=== PATIENT | male | born 1940 | race Caucasian/White ===

== ENCOUNTER 2018-09-14 19:23 | Inpatient (IN) ==
[2018-09-14] MEDS ORDERED: Labetalol HCl Inj 100 MG/20 ML Vial IV.PUSH ONE (19:37)
[2018-09-14] MEDS ORDERED: Labetalol HCl Inj 20 MG/4 ML Vial IV.PUSH ONE (19:45)
[2018-09-14 19:49] LABS: Baso # (Auto) 0.1 th/mm3 (0.0-0.2); Baso % (Auto) 0.7 % (0.0-2.0); Eos # (Auto) 0.9 th/mm3 (0.0-0.4); Eos % (Auto) 7.7 % (0.0-4.0); Hematocrit 35.7 % (39.0-51.0); Lymph # (Auto) 4.8 th/mm3 (1.0-4.8); Mean Corpuscular HGB Conc 33.7 % (32.0-36.0); Mean Platelet Volume 7.3 fL (7.0-11.0); Mono # (Auto) 0.9 th/mm3 (0.0-0.9); Neut # (Auto) 4.4 th/mm3 (1.8-7.7); Neut % (Auto) 39.6 % (16.0-70.0); Platelet Count 279 th/mm3 (150-450); Red Blood Count 3.75 mil/mm3 (4.50-5.90); Red Cell Distribution Width 13.2 % (11.6-17.2); White Blood Count 11.1 th/mm3 (4.0-11.0)
[2018-09-14 19:56] LABS: Chloride 102 meq/L (98-107); Potassium 3.8 meq/L (3.5-5.1); Sodium 135 meq/L (136-145)
[2018-09-14 19:59] LABS: Anion Gap 10 meq/L (5-15); Blood Urea Nitrogen 16 mg/dL (7-18); Calcium 8.7 mg/dL (8.5-10.1); Carbon Dioxide 23.4 meq/L (21.0-32.0); Glucose,Random 110 mg/dL (74-106)
[2018-09-14 20:02] LABS: Activated Partial Thrombo Time 25.1 sec (23.4-31.7); Prothrombin Time 10.5 sec (9.8-11.6)
[2018-09-14 20:03] LABS: Glomerular Filtration Rate 73 mL/min (>89)
[2018-09-14 20:06] LABS: Creatine Kinase 105 U/L (39-308)
[2018-09-14] MEDS ORDERED: ALTEPLASE DRIP IV.SIG ONE ×2 (20:09→21:00)
[2018-09-14] MEDS ORDERED: Alteplase Bolus 9 MG/9 ML Syringe IV.PUSH ONE (20:09)
[2018-09-14] MEDS ORDERED: niCARdipine Inj 25 MG in Sodium Chlor 0.9% Inj 240 ML IV.CONT PRN (20:09)
--- NOTE | 2018-09-14 20:21 | ED ---
HPI General Chief complaint: Stroke Alert Stated complaint: STROKE ALERT Time Seen by Provider: 09/14/18 19:44 Source: EMS Mode of arrival: EMS Limitations: altered mental status History of Present Illness HPI narrative: 78-year-old male with history of hypertension, hyperlipidemia, diabetes, brought in by EMS from home as a stroke alert. According to paramedics, they were called at 6:45 PM in regards to the patient having expressive aphasia and left-sided weakness. Symptoms started at around 6:30 PM and were first noticed by the patient's . On arrival the patient is awake, looks around the room, follows some commands, is non-conversive, is a poor historian. When asked any question, the patient's response is "yes." On exam the patient has right upper and right lower extremity weakness, with inability to hold these extremities against gravity. He has normal strength in his left upper and left lower extremity. There is no facial asymmetry. Stroke alert was initiated in the field and continued by me here in the emergency department. Shortly after my assessment the patient was promptly taken to CT scan. 7:31 PM: The patient's is at the bedside. At this time the patient is at CT. She tells me that the patient is very active and went out for a bicycle ride this evening. When he returned home, shortly afterwards when they were having a conversation she tells me that what he was saying did not make any sense. He then attempted to feed himself and was unable to do so, missing his mouth while attempting to eat salad. The symptoms started at around 6:30 PM according to the patient's . The risks and benefits of TPA were discussed with the patient's and she has provided verbal consent to this medication. As soon as the patient's blood pressure was controlled with Cardene, and CT report showed no intracranial hemorrhage, the patient was administered TPA. The patient's is at the bedside and was made aware of all findings. I also spoke with the patient's [id number] via telephone who is a critical care nurse in [place] and made her aware of the clinical situation. Related Data Allergies Allergy/AdvReac Type Severity Reaction Status Date / Time No Known Allergies Allergy Verified 09/14/18 20:39 Review of Systems ROS Unobtainable ROS Unobtainable: unobtainable due to mental condition PMFSH Social History Social History Recent Travel in [facility] within the Last 8 Weeks: No Recent Out of Country Travel within the Last 8 Weeks: No Exam Narrative Exam Narrative: GENERAL: Well-developed, well-nourished, awake, looks around room, no apparent distress. SKIN: Focused skin assessment warm/dry. HEAD: Atraumatic. Normocephalic. EYES: Pupils equal, round, 3 mm, reactive to light. No scleral icterus. No injection or drainage. ENT: No nasal bleeding or discharge. Mucous membranes pink and moist. NECK: Trachea midline. No JVD. CARDIOVASCULAR: Regular rate and rhythm. RESPIRATORY: No accessory muscle use. Clear to auscultation. Breath sounds equal bilaterally. GASTROINTESTINAL: Abdomen soft, non-tender, nondistended. MUSCULOSKELETAL: No obvious deformities. No clubbing. No cyanosis. No edema. NEUROLOGICAL: Awake and alert. Does not answer questions appropriately, usually responding with "yes." Right arm and right leg weakness, with inability to hold his extremities against gravity. Normal strength in left upper and left lower extremity. Does not follow all commands. PSYCHIATRIC: Unable to assess. Course Initial Documented Vital Signs Pulse Oximetry 99 09/14/18 19:23 Last Documented Vital Signs Temperature 97.4 F L 09/14/18 19:24 Pulse Rate 56 L 09/14/18 19:24 Respiratory Rate 18 09/14/18 19:24 Blood Pressure 198/87 H 09/14/18 19:24 Pulse Oximetry 100 09/14/18 19:24 Critical Care Time Critical Care Time: Yes Total Critical Care Time: 40 Attestation: Aggregate critical care time was 40 minutes. Time to perform other separately billable procedures was not included in the critical care time. My time did not include minutes spent treating any other patients simultaneously or on activities that did not directly contribute to the patient's treatment. The services I provided to this patient were to treat and/or prevent clinically significant deterioration that could result in: , permanent disability, worsening clinical condition, acute respiratory failure I provided critical care services requiring my management, as noted below: Chart data review, documentation time, medication orders and management, vital sign assessments/reviewing monitor data, ordering and reviewing lab tests, ordering and interpreting/reviewing x-rays and diagnostic studies, care of the patient and discussion of the patient with the admitting physicians. Quality Measure Queries Stroke Last date observed well: 09/14/18 Last time observed well: 20:19 Comment Thrombolytic Delay: Patient was unable to lay flat for CT scan vomiting several times. He required 3 doses of antiemetics before he was able to lay flat without vomiting. Medical Decision Making MDM Narrative Medical decision making narrative: 7:30 PM: After assessing the patient I discussed the case with on-call neurologist Dr. Merrill. States the patient is a TPA candidate based on his symptoms and presentation to the emergency department approximately 45 minutes after onset. 7:31 PM: More history was obtained from the patient's who arrived shortly after the patient. See HPI. Verbal consent to administer TPA was obtained from her should the CT head be absent for hemorrhage. 7:35 PM: I was called to CT as the patient has had multiple episodes of vomiting while laying flat. Patient was provided Zofran without any improvement. He was then given 10 mg of IV Reglan without any improvement. He was notably hypertensive and was given 10 mg of IV labetalol with improvement in his blood pressure to 154/92, however his heart rate slowed from the mid 60s to the low 50s. Again, CT head was attempted, however the patient vomited. He was given 25 mg of IM Phenergan, and at approximately 8:05 PM the patient was able to lay flat for CT head. CT head was reviewed by neurologist Dr. Merrill and there is not appear to be an intracranial hemorrhage. Patient's blood pressure again increased, and he was started on a Cardene drip for better BP control prior to initiation of TPA. Case discussed with sous chef Dr. Munoz who will admit the patient to the ICU at our main hospital in [facility]. Medical Screen Exam Complete: Yes Emergency Medical Condition: Yes Differential Diagnosis Differential Diagnosis: Acute CVA, intracranial abnormality, intracranial mass, metabolic encephalopathy Lab Data Result diagrams: 09/14/18 19:35 09/14/18 19:35 Lab Results 09/14/18 09/14/18 09/14/18 Range/Units 19:35 19:35 19:35 CBC w Diff Auto diff final WBC 11.1 H (4.0-11.0) th/mm3 RBC 3.75 L (4.50-5.90) mil/mm3 Hgb 12.0 L (13.0-17.0) gm/dL Hct 35.7 L (39.0-51.0) % MCV 95.0 (80.0-100.0) fL MCH 32.0 (27.0-34.0) pg MCHC 33.7 (32.0-36.0) % RDW 13.2 (11.6-17.2) % Plt Count 279 (150-450) th/mm3 MPV 7.3 (7.0-11.0) fL Neut % (Auto) 39.6 (16.0-70.0) % Lymph % (Auto) 44.0 (9.0-44.0) % [place] % (Auto) 8.0 (0.0-8.0) % Eos % (Auto) 7.7 H (0.0-4.0) % Baso % (Auto) 0.7 (0.0-2.0) % Neut # (Auto) 4.4 (1.8-7.7) th/mm3 Lymph # (Auto) 4.8 (1.0-4.8) th/mm3 [place] # (Auto) 0.9 (0.0-0.9) th/mm3 Eos # (Auto) 0.9 H (0.0-0.4) th/mm3 Baso # (Auto) 0.1 (0.0-0.2) th/mm3 WBC Differential . Differential Comment . PT 10.5 (9.8-11.6) sec INR 1.0 Ratio APTT 25.1 (23.4-31.7) sec Fibrinogen 319 (227-377) mg/dL Sodium 135 L (136-145) meq/L Potassium 3.8 (3.5-5.1) meq/L Chloride 102 (98-107) meq/L Carbon Dioxide 23.4 (21.0-32.0) meq/L Anion Gap 10 (5-15) meq/L BUN 16 (7-18) mg/dL Creatinine 1.00 (0.60-1.30) mg/dL Estimated GFR 73 L (>89) mL/min Random Glucose 110 H (74-106) mg/dL Calcium 8.7 (8.5-10.1) mg/dL Total Creatine Kinase 105 (39-308) U/L Troponin I Less than 0.02 L (0.02-0.05) ng/mL TSH (0.358-3.740) uIU/mL 09/14/18 Range/Units 19:35 CBC w Diff WBC (4.0-11.0) th/mm3 RBC (4.50-5.90) mil/mm3 Hgb (13.0-17.0) gm/dL Hct (39.0-51.0) % MCV (80.0-100.0) fL MCH (27.0-34.0) pg MCHC (32.0-36.0) % RDW (11.6-17.2) % Plt Count (150-450) th/mm3 MPV (7.0-11.0) fL Neut % (Auto) (16.0-70.0) % Lymph % (Auto) (9.0-44.0) % [place] % (Auto) (0.0-8.0) % Eos % (Auto) (0.0-4.0) % Baso % (Auto) (0.0-2.0) % Neut # (Auto) (1.8-7.7) th/mm3 Lymph # (Auto) (1.0-4.8) th/mm3 [place] # (Auto) (0.0-0.9) th/mm3 Eos # (Auto) (0.0-0.4) th/mm3 Baso # (Auto) (0.0-0.2) th/mm3 WBC Differential Differential Comment PT (9.8-11.6) sec INR Ratio APTT (23.4-31.7) sec Fibrinogen (227-377) mg/dL Sodium (136-145) meq/L Potassium (3.5-5.1) meq/L Chloride (98-107) meq/L Carbon Dioxide (21.0-32.0) meq/L Anion Gap (5-15) meq/L BUN (7-18) mg/dL Creatinine (0.60-1.30) mg/dL Estimated GFR (>89) mL/min Random Glucose (74-106) mg/dL Calcium (8.5-10.1) mg/dL Total Creatine Kinase (39-308) U/L Troponin I (0.02-0.05) ng/mL TSH 4.300 H (0.358-3.740) uIU/mL Imaging Data Radiologist's impression: Head CT 09/14/18 19:27 CONCLUSION: 1. No acute intracranial abnormalities. Report was called by Dr. Huang to Dr. Merrill at 8:23 PM.. Head CTA 09/14/18 19:27 CONCLUSION: 1. Negative CTA Head. Report was called by Dr. Enriquez to Dr. Merrill at 8:42 PM on September 14 2018. ECG Data Attestation: I personally reviewed and interpreted this ECG as follows: (Sinus bradycardia with occasional PVCs, RBBB, LAFB, LVH, septal Q waves, no acute ischemic abnormality.) Discharge Plan Discharge Disposition Patient Disposition: ED Admit(ED Internal Use Only) Discharge Condition Condition: Stable Discharge Details Diagnosis: Acute ischemic stroke Physicians Team ED Provider: Rogelio Murray Primary Care Provider: Primary Care Salma Porter Status ED Status: With Doctor
--- NOTE | 2018-09-14 20:27 | CT ---
EXAM DATE: 09/14/2018 8:21 PM EST AGE/SEX: 78 years / Male INDICATIONS: Stroke alert. CLINICAL DATA: This is the patient's initial encounter. Patient reports that signs and symptoms have been present for 1 day and indicates a pain score of 5/10. MEDICAL/SURGICAL HISTORY: Non-responsive. Non-responsive. RADIATION DOSE: 59.60 CTDI (mGy) COMPARISON: No prior exams available for comparison. TECHNIQUE: CT of the head without contrast. Using automated exposure control and adjustment of the mA and/or kV according to patient size, radiation dose was kept as low as reasonably achievable to ob tain optimal diagnostic quality images. DICOM format image data is available electronically for revi ew and comparison. FINDINGS: Cerebrum: No acute mass, hemorrhage or midline shift. No hydrocephalus. Posterior Fossa: The cerebellum and brainstem are intact. The 4th ventricle is midline. The cerebe llopontine angle is unremarkable. Extracranial: The visualized portion of the orbits is intact. Skull: The calvaria is intact. No evidence of skull fracture. CONCLUSION: 1. No acute intracranial abnormalities. Report was called by Dr. Huang to Dr. Merrill at 8:23 PM.. Electronically signed by: Marlon Huang MD Board Certified Radiologist 09/14/2018 8:25 PM EST
[2018-09-14] MEDS ORDERED: ALTEPLASE IV.PUSH ONE (20:45)
--- NOTE | 2018-09-14 20:46 | CT ---
EXAM DATE: 09/14/2018 8:38 PM EST AGE/SEX: 78 years / Male INDICATIONS: STROKE ALERT. CLINICAL DATA: This is the patient's initial encounter. Patient reports that signs and symptoms have been present for 1 day and indicates a pain score of 5/10. MEDICAL/SURGICAL HISTORY: Non-responsive. Non-responsive. RADIATION DOSE: 42.78 CTDI (mGy) COMPARISON: No prior exams available for comparison. TECHNIQUE: Volumetric scanning was performed using a multi-row detector CT scanner during bolus infu bhavna of 75 ml Visipaque 320 (iodixanol) nonionic water-soluble contrast as a cumulative dose for mul tiple exams. The data was post processed with a variety of visualization algorithms including full volume maximum intensity projection, multi-planar sliding thin slab reformation, curved planar reform ation, and surface rendering techniques. Using automated exposure control and adjustment of the mA a nd/or kV according to patient size, radiation dose was kept as low as reasonably achievable to obtain optimal diagnostic quality images. DICOM format image data is available electronically for review a nd comparison. FINDINGS: There is excellent visualization of the major intracranial arteries out to the second-order branch ve ssels. There is no evidence for aneurysm, vessel truncation or stenosis, and no evidence for vascula r malformation. There is calcific plaquing of the distal vertebral arteries, as well as the supraclin oid internal carotid arteries, and mild calcific plaquing of the bilateral carotid bifurcations in th e neck. CONCLUSION: 1. Negative CTA Head. Report was called by Dr. Enriquez to Dr. Merrill at 8:42 PM on September 14 2018. Electronically signed by: Rodri Enriquez MD Board Certified Radiologist 09/14/2018 8:44 PM EST
[2018-09-14 21:01] LABS: Thyroid Stimulating Hormone 4.3 uIU/mL (0.358-3.740)
[2018-09-14] MEDS: Sod Chloride 0.9% Inj 1,000 ML IV.CONT SCH (21:05)
[2018-09-14] MEDS ORDERED: Bisacodyl 10 MG Supp RECTAL PRN (21:06)
[2018-09-14] MEDS ORDERED: Acetaminophen 325 MG Tablet PO PRN (21:06)
--- NOTE | 2018-09-14 21:07 | CT ---
EXAM DATE: 09/14/2018 9:03 PM EST AGE/SEX: 78 years / Male INDICATIONS: STROKE ALERT. CLINICAL DATA: This is the patient's initial encounter. Patient reports that signs and symptoms have been present for 1 day and indicates a pain score of Nonresponsive. MEDICAL/SURGICAL HISTORY: Non-responsive. Non-responsive. RADIATION DOSE: 42.78 CTDI (mGy) COMPARISON: No prior exams available for comparison. TECHNIQUE: Volumetric scanning was performed using a multirow detector CT scanner during bolus infus ion of 75 ml Visipaque 320 (iodixanol) nonionic water-soluble contrast as a cumulative dose for mult iple exams. The data was postprocessed with a variety of visualization algorithms including full-vo lume maximum intensity projection, multiplanar sliding thin-slab reformation, curved-planar reformati on, and surface-rendering techniques. Using automated exposure control and adjustment of the mA and/ or kV according to patient size, radiation dose was kept as low as reasonably achievable to obtain op timal diagnostic quality images. DICOM format image data is available electronically for review and comparison. Percent stenosis is calculated using the diameter of the stenotic region over the diameter of the nor mal distal internal carotid artery. FINDINGS: Aortic Arch: There is a three-vessel origin of the great vessels from the aorta. No evidence of ost ial narrowing Common carotid arteries are patent. Moderate calcific plaque at the carotid bifurcations without hemo dynamically significant stenosis Vertebrals: The vertebral arteries have a symmetric diameter. No stenotic lesions are seen. CONCLUSION: 1. Moderate plaque at the carotid bifurcations. No hemodynamically significant stenosis. Report was called by Dr. Enriquez to Dr. Merrill at 8:42 PM Electronically signed by: Marlon Huang MD Board Certified Radiologist 09/14/2018 9:05 PM EST
[2018-09-14] MEDS ORDERED: Dextrose 50% in Water 50 ML Vial IV.PUSH PRN (21:12)
--- NOTE | 2018-09-14 21:29 | MB ---
cc: Sanjeev Merrill MD DATE: 09/14/2018 HISTORY OF PRESENT ILLNESS: The patient is a 78-year-old right-handed man with hypertension, noninsulin dependent diabetes, hypercholesterolemia, does not take an aspirin a day, otherwise been healthy and about 6:30 p.m. tonight, he began to have difficulty speaking, some right-sided weakness, came in as a stroke alert. I was called approximately 30 minutes ago and we have him in the CAT scan. Unfortunately, he is unable to lie flat without vomiting. His blood pressure has been high up to 200/80, but it has come down to 150/90 with 10 of labetalol, though his heart rate did drop transiently down to about 46 and then improved back up to 52. We have given him Zofran and other medications. The ER doctor is on the scene and he still unable to lie flat without retching and vomiting. REVIEW OF SYSTEMS: According to his no history of [place], CABG, stent, angioplasty, A-Fib, Coumadin, renal, hepatic, or pulmonary disease, thyroid disease, lupus, ulcer, cancer, seizure or stroke. SOCIAL HISTORY: Nonsmoker, has 3 beers a day, lives with his . FAMILY HISTORY: Negative for cancer, seizure, or stroke. MEDICATIONS: He does not take any blood thinners. He is on some diabetic medications, hypertension medication. He does not take an aspirin a day. PHYSICAL EXAMINATION: VITAL SIGNS: Currently 51, 154/92. NEUROLOGIC: He is awake and alert. He does not answer properly to questions. He does not follow commands well. We will not stick out his tongue. It is hard to tell if his visual garcia are full or not. There is no facial droop. He definitely has weakness of the right upper extremity, appears to be probably at least 4-/5. Left upper extremity, left lower extremity appeared to be normal. Right lower extremity appears to be about 4+/5. NIH stroke scale is a 10. Labs are pending. Glucose was approximately 150. IMPRESSION: He is a candidate for tissue plasminogen activator if we can get a CAT scan on him. We have struggled with trying to get the CAT scan. Whether he will have to be intubated for that, I have asked the medical doctor to try to ascertain that. So we are in a holding pattern until we can get the CAT scan due to his vomiting rolling down, but I suspect he possibly could have had a hemorrhage or a posterior circulation infarct as another possibility. Since he has come in, he has been fairly stable; however, still awake and interacting, but weak on the right side and aphasic. ADDENDUM We have been able to get his blood pressure down with nicardipine drip. His CT of the brain was negative. CTA also negative. We are going to go ahead and give him the TPA now that we have got his blood pressure under control. Total time on the case 90 minutes. I have reviewed the chart, talked with the and have been following the patient via telemedicine hookup. We were able to get his nausea and vomiting under control and he did not need to be intubated. He still maintains inability to talk. He appears to be a bit stronger. At this time, I would put his NIH stroke scale at a 7/7 at this time, as it appears he has gotten stronger in the right arm and leg. MD BRENNEN Richard/prashant , 08:03 PM , 08:16 PM
--- NOTE | 2018-09-14 21:56 | P.HPCC ---
History of Present Illness Service: Critical care medicine Primary Care Physician: No Primary Care Physician Chief Complaint: CVA History of Present Illness: This is a 78-year-old right-handed male. Date of admission 09/14/2018. Past medical history includes essential hypertension hyperlipidemia and medicine dependent diabetes mellitus. Patient presented to [facility] with a chief complaint of altered mental status.including expressive aphasia and was described as left-sided weakness.. Per documentation by physician Dr. Murray. On initial examination, the patient has right upper and right lower extremity weakness, with inability to hold his right upper and lower extremities against gravity. He has normal strength in his left upper and left lower extremity. There is no facial asymmetry. Stroke alert was initiated in the field and continued at the [facility] ED. Patient was taken to CT scan which was negative. CT angiogram of the brain and neck revealed no acute intracranial findings. NIH score was 10 for aphasia, not following commands and left upper and lower motor weakness. Dr. Merrill to evaluate the patient. Patient did receive metoclopramide and ondansetron and promethazine for nausea which is persistent. Decision was made to start alteplase was given 8.6 mg IV x1 followed by 77.4 mg. Patient was hypertensive and started on nicardipine drip to keep systolic blood pressure less than 180. ED physician at [facility] discussed with patient's and patient's daughter -in-law via telephone who is a critical care nurse in [place] and made her aware of the clinical situation. MRI of the brain has been ordered but patient is currently too combative to perform the present time. Patient did receive 1 mg of lorazepam and attempt to calm the patient which was not successful - Diagnosis (1) Essential hypertension (2) Hyperlipidemia (3) Diabetes mellitus (4) Leukocytosis (5) Normocytic anemia (6) Elevated TSH (7) Acute ischemic stroke Inpatient Certification: I certify that the inpatient services were ordered in accordance with Medicare regulations governing the order. This includes certification that hospital inpatient services are reasonable and necessary and in the case of services not specified as inpatient-only under 42 CFR 419.22(n), that they are appropriately provided as inpatient services in accordance to with the 2-midnight benchmark under 43 CFR 412.3(e) Estimated Total Length of Stay (Days): 5 Plans for Post Hospital Care: Not yet determined Review of Systems unobtainable due to mental status PMFSH - History History Provided By: Significant Other, Jewel Stringer / EMT - Medical History Medical History: Medical History (Last Updated 09/14/18 @ 23:27 by Suraj Munoz MD) Diabetes mellitus High cholesterol Hypertension - Surgical History Surgical History: Surgical History (Last Updated 09/14/18 @ 23:27 by Suraj Munoz MD) No significant past surgical history - Family History Family History: Family History (Last Updated 09/14/18 @ 23:27 by Suraj Munoz MD) Other No significant family history - Social History I have reviewed the patient's Social History: Yes - Tobacco History Second Hand Smoke Exposure: No Tobacco Use In Past 30 Days: No Smoking Status: Former smoker - Alcohol History How Often Do You Have a Drink Containing Alcohol: 4 or more times a week - Substance Use History Substance History: No History of Abuse - Travel History Recent Travel in the [place] Within the Last 8 Weeks: No Recent Travel Out of the Country Within the Last 8 Weeks: No - Immunization History Tetanus Immunization: Unsure Medications and Allergies Active Medications: Active Medications Acetaminophen (Tylenol) 650 mg PO Q6H PRN PRN Reason: Fever >101f Hydrocodone Bitart/Acetaminophen ([place] 5/325) 1 tab PO Q4H PRN PRN Reason: PAIN SCALE 1 TO 5 Al Hydroxide/Mg Hydroxide (Milk Of Magnesia Liq) 30 ml PO Q12H PRN PRN Reason: Mild Constipation Albuterol (Albuterol Neb (Prn)) 2.5 mg NEB Q2HR NEB PRN PRN Reason: SHORTNESS OF BREATH Albuterol (Duoneb Neb ([place])) 1 ampul NEB Q6HR NEB [place] Last Admin: 09/14/18 21:41 Dose: 1 ampul Bisacodyl (Dulcolax Supp) 10 mg RECTAL DAILY PRN PRN Reason: SEVERE CONSITIPATION Chlorhexidine Gluconate (Chlorhexidine 2% Cloth) 3 pack TOPICAL DAILY@0400 [place] Stop: 09/20/18 03:59 Chlorhexidine Gluconate (Chlorhexidine 2% Cloth) 3 pack TOPICAL DAILY@0400 PRN PRN Reason: Extra cloth needed Stop: 09/20/18 03:59 Dextrose (D50w Vial) 50 ml IV.PUSH UNSCH PRN PRN Reason: PER HYPOGLYCEMIA PROTOCOL Glucagon (Glucagon Inj) 1 mg OTHER UNSCH PRN PRN Reason: for Hypoglycemia Protocol Sodium Chloride (Ns Inj) 1,000 mls @ 70 mls/hr IV.CONT .[id number] [facility] Last Admin: 09/14/18 21:05 Dose: 70 mls/hr Nicardipine HCl 25 mg/ Sodium (Chloride) 250 mls @ 25 mls/hr IV.CONT TITRATE PRN; Protocol PRN Reason: Per Protocol Last Admin: 09/14/18 20:34 Dose: 5 mg/hr, 50 mls/hr Alteplase, Recombinant 77.4 mg (/ Miscellaneous Medication) 77.4 mls @ 77.4 mls /hr IV.SIG ONCE ONE Stop: 09/14/18 21:59 Last Admin: 09/14/18 20:55 Dose: 77.4 mls/hr Insulin Aspart (Novolog Insulin Correctional Sugar Inj) 0 unit SQ Q6HR [place]; Protocol Lactulose (Lactulose Liq) 30 ml PO DAILY PRN PRN Reason: SEVERE CONSITIPATION Metoclopramide HCl (Reglan Inj) 5 mg IV.PUSH Q6HR [place]; Protocol Morphine Sulfate (Morphine Inj) 2 mg IV.PUSH Q2H PRN PRN Reason: PAIN SCALE 6 TO 10 Ondansetron HCl (Zofran Inj) 4 mg IV.PUSH Q6H PRN PRN Reason: NAUSEA OR VOMITING Pravastatin Sodium (Pravachol) 40 mg PO HS [facility] Senna/Docusate Sodium (Tara-Colace) 1 tab PO BID [facility] Sennosides (Senokot) 17.2 mg PO Q12H PRN PRN Reason: Moderate Constipation Sodium Chloride (Ns Flush) 2 ml IV.FLUSH BID [facility] Sodium Chloride (Ns Flush) 2 ml IV.FLUSH PRN PRN PRN Reason: FLUSH AFTER USING IV ACCESS Sodium Chloride (Ns Flush) 2 ml IV.FLUSH BID [facility] Sodium Chloride (Ns Flush) 2 ml IV.FLUSH PRN PRN PRN Reason: FLUSH AFTER USING IV ACCESS Allergies Allergy/AdvReac Type Severity Reaction Status Date / Time No Known Allergies Allergy Verified 09/14/18 20:39 Home Medications Medication Instructions Recorded Confirmed Type Unable to Obtain Home Meds 09/14/18 09/14/18 History Results - Labs CBC & Chem 7: 09/14/18 19:35 09/14/18 19:35 Labs: Short CBC 09/14/18 Range/Units 19:35 WBC 11.1 H (4.0-11.0) th/mm3 Hgb 12.0 L (13.0-17.0) gm/dL Hct 35.7 L (39.0-51.0) % Plt Count 279 (150-450) th/mm3 BMP 09/14/18 19:35 Sodium 135 L Potassium 3.8 Chloride 102 Carbon Dioxide 23.4 BUN 16 Creatinine 1.00 Calcium 8.7 Cardiac Enzymes 09/14/18 Range/Units 19:35 Total Creatine Kinase 105 (39-308) U/L Troponin I Less than 0.02 L (0.02-0.05) ng/mL - Imaging Impressions Head CT 09/14/18 19:27 CONCLUSION: 1. No acute intracranial abnormalities. Report was called by Dr. Huang to Dr. Merrill at 8:23 PM.. Head CTA 09/14/18 19:27 CONCLUSION: 1. Negative CTA Head. Report was called by Dr. Enriquez to Dr. Merrill at 8:42 PM on September 14 2018. Neck CTA 09/14/18 19:27 CONCLUSION: 1. Moderate plaque at the carotid bifurcations. No hemodynamically significant stenosis. Report was called by Dr. Enriquez to Dr. Merrill at 8:42 PM Exam Vital signs: Vital Signs 09/14/18 19:23 09/14/18 19:24 09/14/18 21:40 Temperature 97.4 F L Pulse Rate 56 L 72 Respiratory Rate 18 20 Blood Pressure 198/87 H Pulse Oximetry 99 100 99 Intake & Output 09/14/18 09/14/18 09/15/18 06:59 18:59 06:59 Weight 95.5 kg Narrative: GENERAL: 78-year-old male very combative lying in bed on room air and SKIN: Warm and dry. No rash HEAD: Atraumatic. Normocephalic. EYES: Pupils equal and round about 3 mm bilaterally. No scleral icterus. No injection or drainage. ENT: No nasal bleeding or discharge. Mucous membranes pink and moist. NECK: Trachea midline. No JVD. CARDIOVASCULAR: Bradycardic, RR. S1, S2. No S4. No murmur RESPIRATORY: No accessory muscle use. Clear to auscultation. Breath sounds equal bilaterally. GASTROINTESTINAL: Abdomen soft, non-tender, nondistended. Hepatic and splenic margins not palpable. MUSCULOSKELETAL: Extremities without clubbing, cyanosis, or edema. NEUROLOGICAL: Awake and alert. No obvious cranial nerve deficits. No obvious facial droop. Strength right upper lower extremity 4-5. Strength left upper lower extremity. 5 out of 5. Aphasic. Does not follow commands. Does not stick out tongue. Gait was not assessed. Motor grossly within normal limits. Five out of 5 muscle strength in the arms and legs. Normal speech. Septic Shock Reassessment Septic shock perfusion: reassessment completed Caprini VTE Risk Assessment Caprini VTE Risk Assessment: Moderate/High Risk (score >= 2) Caprini Risk Assessment Model: Point Value = 1 Point Value = 2 Point Value = 3 Point Value = 5 Age 41-60 Minor surgery BMI > 25 kg/m2 Swollen legs Varicose veins or History of unexplained or recurrent spontaneous Oral contraceptives or hormone replacement Sepsis (< 1 month) Serious lung disease, including pneumonia (< 1 month) Abnormal pulmonary function Acute myocardial infarction Congestive heart failure (< 1 month) History of inflammatory bowel disease Medical patient at bed rest Age 61-74 Arthroscopic surgery Major open surgery (> 45 min) Laparoscopic surgery (> 45 min) Malignancy Confined to bed (> 72 hours) Immobilizing plaster cast Central venous access Age >= 75 History of VTE Family history of VTE Factor V Leiden Prothrombin [id number] Lupus anticoagulant Anticardiolipin antibodies Elevated serum homocysteine Heparin-induced thrombocytopenia Other congenital or acquired thrombophilia Stroke (< 1 month) Elective arthroplasty Hip, pelvis, or leg fracture Acute spinal cord injury (< 1 month) Prophylaxis Regimen: Total Risk Factor Score Risk Level Prophylaxis Regimen 0-1 Low Early ambulation 2 Moderate Order ONE of the following: *Sequential Compression Device (SCD) *Heparin 5000 units SQ BID 3-4 Higher Order ONE of the following medications: *Heparin 5000 units SQ TID *Enoxaparin/Lovenox 40 mg SQ daily (WT < 150 kg, CrCl > 30 mL/min) *Enoxaparin/Lovenox 30 mg SQ daily (WT < 150 kg, CrCl > 10-29 mL/min) *Enoxaparin/Lovenox 30 mg SQ BID (WT < 150 kg, CrCl > 30 mL/min) AND/OR *Sequential Compression Device (SCD) 5 or more Highest Order ONE of the following medications: *Heparin 5000 units SQ TID (Preferred with Epidurals) *Enoxaparin/Lovenox 40 mg SQ daily (WT < 150 kg, CrCl > 30 mL/min) *Enoxaparin/Lovenox 30 mg SQ daily (WT < 150 kg, CrCl > 10-29 mL/min) *Enoxaparin/Lovenox 30 mg SQ BID (WT < 150 kg, CrCl > 30 mL/min) AND *Sequential Compression Device (SCD) Assessment and Plan - Problem List (1) Essential hypertension Code(s): I10 - Essential (primary) hypertension Status: Chronic (2) Hyperlipidemia Code(s): E78.5 - Hyperlipidemia, unspecified Status: Chronic (3) Diabetes mellitus Code(s): E11.9 - Type 2 diabetes mellitus without complications Status: Chronic (4) Leukocytosis Code(s): D72.829 - Elevated white blood cell count, unspecified Status: Acute (5) Normocytic anemia Code(s): D64.9 - Anemia, unspecified Status: Acute (6) Elevated TSH Code(s): R79.89 - Other specified abnormal findings of blood chemistry Status : Acute (7) Acute ischemic stroke Code(s): I63.9 - Cerebral infarction, unspecified Status: Acute - Assessment and Plan Plan: Neuro/Psych: Acute cerebral infarction with aphasia, right upper lower extremity weakness EtOH use CT brain/CT angiogram brain and neck revealed no acute intracranial findings Evaluated by Dr. Received alteplase Goal keep systolic blistering with some 180, diastolic blood sugar less than 105 Check hemoglobin A1c and lipid panel 2D echocardiogram GANESH, RPR ordered Vitamin bag daily times 3 days MRI brain when patient stabilized CT brain at 24 hours post alteplase infusion Neurochecks Received alteplase 8.6 mg bolus followed by 77.4 mg over 1 hour CV: Essential hypertension Hyperlipidemia Right bundle branch block EKG revealed sinus bradycardia with right bundle branch block, left ventricular block. His troponin was 0.02. Currently nicardipine drip to maintain systolic blood pressure less than 180, diastolic pressure less than 105 Obtain home medications Start on pravastatin 40 mg daily Start aspirin post CT brain if no hemorrhage identified Resp: Nasal cannula to maintain saturations greater than equal to 92% Incentive spirometry r while awake As needed albuterol aerosols every 2 hours for dyspnea GI: N.p.o. status Pantoprazole for GI prophylaxis Docusate sodium/senna 1 tablet twice daily for bowel regimen : Arnold catheter/straight catheterization. Endo: Diabetes mellitus type 2 Elevated TSH Renal: Creatinine currently within normal limit Monitor urine output Accurate I's and O's Heme: Normocytic anemia Leukocytosis Monitor CBC daily. Follow trends No indication for transfusion at this time ID: Monitor for signs and symptomatology infection FEN: Hyponatremia Currently normal saline at 70 cc an hour Replace electro lites as clinically indicated per ICU electrolyte protocol MSK: Access -Utilize peripheral IV. Central line if indicated Prophylaxis -GI -pantoprazole -DVT -SCD/no pharmacological prophylaxis 24 hours post alteplase Level 3 admission Code Status: Full code Discussed Condition With: ED physician. No family available. Care plan discussed and all questions answered (2) Hyperlipidemia Qualifiers: Hyperlipidemia type: unspecified Qualified Code(s): E78.5 - Hyperlipidemia, unspecified (3) Diabetes mellitus Qualifiers: Diabetes mellitus type: type 2 Diabetes mellitus [facility] insulin use: unspecified [facility] insulin use status Diabetes mellitus complication status : with unspecified complications Qualified Code(s): E11.8 - Type 2 diabetes mellitus with unspecified complications (4) Leukocytosis Qualifiers: Leukocytosis type: unspecified Qualified Code(s): D72.829 - Elevated white blood cell count, unspecified
[2018-09-14] MEDS ORDERED: Potassium Chlor 40 mEq Premix 40 MEQ/100 ML PIGGYBACK IV.SIG PRN ×2 (23:23)
[2018-09-14] MEDS ORDERED: Potassium Chlor 20 mEq Premix 20 MEQ/100 ML PIGGYBACK IV.SIG PRN ×2 (23:23)
[2018-09-14] MEDS ORDERED: Potassium Chloride Liq 20 MEQ/15 ML UDC PO PRN ×2 (23:23)
[2018-09-14] MEDS ORDERED: Magnesium Sulfate Inj 4 GM in Sodium Chlor 0.9% Inj 92 ML IV.SIG PRN (23:23)
[2018-09-14] MEDS ORDERED: Magnesium Sulfate Inj 2 GM in Sodium Chlor 0.9% Inj 96 ML IV.SIG PRN (23:23)
[2018-09-14] MEDS ORDERED: Magnesium Oxide 400 MG Tablet PO PRN (23:23)
[2018-09-14] MEDS ORDERED: Sodium Phosphate Inj 30 MMOL in Sodium Chlor 0.9% Inj 250 ML IV.SIG PRN (23:23)
[2018-09-14] MEDS ORDERED: Potassium Phosphate Inj 30 MMOL in Sodium Chlor 0.9% Inj 250 ML IV.SIG PRN (23:23)
[2018-09-14] MEDS ORDERED: Potassium Phosphate 500 MG Soluble Tablet PO PRN ×2 (23:23)
[2018-09-15] MEDS: Dexmedetomidine Inj 200 MCG in Sodium Chlor 0.9% Inj 48 ML IV.CONT PRN ×6 (00:04→07:56)
[2018-09-15] MEDS: Morphine Sulfate Inj 2 MG/ML Vial IV.PUSH PRN ×2 (00:08→03:06)
[2018-09-15 00:32] LABS: Bilirubin,Urine Negative (Negative); Clarity,Urine Clear (Clear); Color,Urine Straw (Yellw/Straw); Glucose,Urine (UA) 150 mg/dL (Negative); Leukocyte Esterase,Urine Negative (Negative); Nitrite,Urine Negative (Negative); Specific Gravity,Urine 1.014 (1.002-1.035)
[2018-09-15 00:33] LABS: Amphetamine Screen,Urine Neg (Neg); Barbiturate Screen,Urine Neg (Neg); Cannabinoid Screen,Urine Neg (Neg); Cocaine Screen,Urine Neg (Neg)
[2018-09-15] MEDS: Pantoprazole Inj 40 MG Vial IV.PUSH SCH (00:33)
[2018-09-15] MEDS: Insulin NovoLOG Aspart Correctional Sugar Inj SQ SCH ×4 (00:34→17:18)
[2018-09-15 00:51] LABS: Opiate Screen,Urine Neg (Neg)
[2018-09-15] MEDS: Multivitamin Inj 10 ML, Thiamine Inj 100 MG, Folic Acid Inj 1 MG in Sodium Chlor 0.9% I... IV.SIG SCH (01:06)
[2018-09-15] MEDS ORDERED: Chlorhexidine Gluconate 2% 1 Pack (2 Cloths) TOPICAL PRN (04:00)
[2018-09-15] MEDS: Chlorhexidine Gluconate 2% 1 Pack (2 Cloths) TOPICAL SCH (05:43)
[2018-09-15 06:46] LABS: Free T4 (Free Thyroxine) 0.95 ng/dL (0.76-1.46)
[2018-09-15] MEDS: Senna/Docusate Sodium 8.6/50 MG Tablet PO SCH ×2 (08:17→20:16)
[2018-09-15] MEDS ORDERED: Dexmedetomidine Inj 1,000 MCG in Sodium Chlor 0.9% Inj 240 ML IV.CONT PRN ×2 (09:28→09:45)
[2018-09-15] MEDS: Sod Chloride 0.9% Inj 1,000 ML IV.CONT SCH ×2 (09:37→21:36)
[2018-09-15] MEDS ORDERED: Gadobutrol PF 10 MMOL/10 ML Vial (for RAD) IV.SIG ONE (10:15)
--- NOTE | 2018-09-15 10:41 | MR ---
EXAM DATE: 09/15/2018 10:31 AM EST AGE/SEX: 78 years / Male INDICATIONS: CVA. CLINICAL DATA: This is the patient's initial encounter. Patient reports that signs and symptoms have been present for 2 days and indicates a pain score of Nonresponsive. MEDICAL/SURGICAL HISTORY: Hypertension. Diabetes mellitus type II. Appendectomy. COMPARISON: [facility], CT STROKE ALERT HEAD WO CON, 09/14/2018. . TECHNIQUE: Multiplanar, multisequence examination of the brain was performed without and with 9.5 ml Gadavist (gadobutrol) contrast as a single exam dose. FINDINGS: Cerebrum: The ventricles are normal for age. No evidence of midline shift, mass lesion, hemorrhage or acute infarction. No extraaxial fluid collections are seen. The pituitary gland and suprasellar cistern are normal in configuration. There is diffuse atrophy. White Matter: Very mild chronic FLAIR signal abnormality seen in the periventricular white matter of both cerebral hemispheres. Posterior Fossa: The cerebellum and brainstem are intact. The 4th ventricle is midline. The cerebel lopontine angle is unremarkable. The cerebellar tonsils are normal in position. Diffusion Imaging: No focal areas of restricted diffusion are seen. No evidence of acute infarction . Extracranial: Subcentimeter mucus retention cyst of the left maxillary air cell. The visualized port ions of the orbits and paranasal sinuses are otherwise unremarkable. Post Contrast: No abnormal areas of parenchymal or dural enhancement. No evidence of blood-brain ba rrier breakdown. CONCLUSION: 1. No acute intracranial abnormality. 2. Atrophy and mild, chronic white matter changes. Electronically signed by: Tong Gibbons MD Board Certified Radiologist 09/15/2018 10:40 AM EST
--- NOTE | 2018-09-15 12:12 | P.PNCC ---
Subjective Subjective Remarks/Hospital Course: This is a 78-year-old right-handed male. Date of admission 09/14/2018. Past medical history includes essential hypertension hyperlipidemia and insulin dependent diabetes mellitus. Patient presented to [facility] with a chief complaint of altered mental status including expressive aphasia and was described as left-sided weakness. Per documentation by physician Dr. Murray. On initial examination, the patient has right upper and right lower extremity weakness, with inability to hold his right upper and lower extremities against gravity. He has normal strength in his left upper and left lower extremity. There is no facial asymmetry. Stroke alert was initiated in the field and continued at the [place] ED. Patient was taken to CT scan which was negative. CT angiogram of the brain and neck revealed no acute intracranial findings. NIH score was 10 for aphasia, not following commands and left upper and lower motor weakness. Dr. Merrill to evaluate the patient. Patient did receive metoclopramide and ondansetron and promethazine for nausea which is persistent. Decision was made to start alteplase was given 8.6 mg IV x1 followed by 77.4 mg. Patient was hypertensive and started on nicardipine drip to keep systolic blood pressure less than 180. ED physician at [place] discussed with patient's and patient's [id number] via telephone who is a critical care nurse in [place] and made her aware of the clinical situation. MRI of the brain has been ordered but patient is currently too combative to perform the present time. Patient did receive 1 mg of lorazepam and attempt to calm the patient which was not successful 09/15: RN noticed significant urinary retention. Agitation improved after placement of Arnold catheter and draining approximately 2 L. Currently on low- dose Precedex 0.2 mcg/kg/h. MRI of the brain completed no acute stroke Objective Vital Signs / I&O: Vital Signs 09/14/18 19:23 09/14/18 19:24 09/14/18 19:27 Temperature 97.4 F L Pulse Rate 56 L 56 L Respiratory Rate 18 Blood Pressure 198/87 H Pulse Oximetry 99 100 100 09/14/18 19:41 09/14/18 19:49 09/14/18 20:00 Temperature Pulse Rate 53 L 52 L 52 L Respiratory Rate 18 18 18 Blood Pressure 197/88 H 192/78 H 190/87 H Pulse Oximetry 100 100 100 09/14/18 20:15 09/14/18 20:30 09/14/18 20:35 Temperature Pulse Rate 53 L 57 L 56 L Respiratory Rate 20 16 18 Blood Pressure 178/85 H 183/85 H 191/85 H Pulse Oximetry 99 100 99 09/14/18 20:38 09/14/18 20:45 09/14/18 20:48 Temperature Pulse Rate 57 L 59 L 64 Respiratory Rate 18 18 18 Blood Pressure 183/85 H 175/79 H 167/71 H Pulse Oximetry 100 09/14/18 20:53 09/14/18 20:58 09/14/18 21:03 Temperature Pulse Rate 61 62 62 Respiratory Rate 20 18 Blood Pressure 162/75 H 157/71 H 152/73 H Pulse Oximetry 100 99 09/14/18 21:08 09/14/18 21:13 09/14/18 21:18 Temperature Pulse Rate 68 71 69 Respiratory Rate 16 18 Blood Pressure 165/72 H 180/78 H 172/72 H Pulse Oximetry 99 09/14/18 21:23 09/14/18 21:28 09/14/18 21:33 Temperature Pulse Rate 68 68 70 Respiratory Rate 16 20 Blood Pressure 162/62 H 159/67 H 140/66 Pulse Oximetry 100 09/14/18 21:38 09/14/18 21:40 09/14/18 21:43 Temperature Pulse Rate 72 72 73 Respiratory Rate 18 20 Blood Pressure 169/70 H 167/69 H Pulse Oximetry 99 09/14/18 21:55 09/14/18 22:00 09/14/18 23:25 Temperature Pulse Rate 76 70 95 H Respiratory Rate 18 18 21 Blood Pressure 159/101 H 169/68 H Pulse Oximetry 100 100 09/15/18 00:00 09/15/18 00:08 09/15/18 01:00 Temperature 98.8 F Pulse Rate 98 H 102 H 77 Respiratory Rate 23 26 H 22 Blood Pressure 158/89 H Pulse Oximetry 95 96 97 09/15/18 01:04 09/15/18 02:00 09/15/18 02:04 Temperature Pulse Rate 73 68 65 Respiratory Rate 21 22 22 Blood Pressure 146/64 H 142/65 H Pulse Oximetry 97 92 L 92 L 09/15/18 03:00 09/15/18 03:04 09/15/18 03:22 Temperature Pulse Rate 88 69 79 Respiratory Rate 24 20 28 H Blood Pressure 169/77 H Pulse Oximetry 91 L 09/15/18 04:00 09/15/18 04:04 09/15/18 05:00 Temperature 98.9 F Pulse Rate 65 66 67 Respiratory Rate 23 22 21 Blood Pressure 152/69 H Pulse Oximetry 93 L 94 L 97 09/15/18 05:25 09/15/18 06:00 09/15/18 06:04 Temperature Pulse Rate 64 66 64 Respiratory Rate 22 21 21 Blood Pressure 182/82 H 160/72 H Pulse Oximetry 94 L 95 09/15/18 07:00 09/15/18 07:04 09/15/18 07:43 Temperature Pulse Rate 69 72 Respiratory Rate 24 65 H Blood Pressure 170/76 H Pulse Oximetry 95 95 97 09/15/18 07:48 09/15/18 07:53 09/15/18 07:55 Temperature 98.9 F Pulse Rate 59 L Respiratory Rate 20 Blood Pressure Pulse Oximetry 97 09/15/18 07:57 09/15/18 08:00 09/15/18 08:04 Temperature Pulse Rate 58 L 64 Respiratory Rate 21 26 H Blood Pressure 157/83 H Pulse Oximetry 97 97 98 09/15/18 08:51 09/15/18 09:00 09/15/18 09:04 Temperature Pulse Rate 55 L 55 L 56 L Respiratory Rate 20 26 H 20 Blood Pressure 120/58 L Pulse Oximetry 99 98 09/15/18 10:28 09/15/18 10:42 09/15/18 11:00 Temperature Pulse Rate 58 L 56 L 58 L Respiratory Rate 18 17 Blood Pressure 141/64 H 142/65 H Pulse Oximetry 99 100 100 09/15/18 11:32 Temperature 98.2 F Pulse Rate Respiratory Rate Blood Pressure Pulse Oximetry Intake & Output 09/14/18 09/15/18 09/15/18 18:59 06:59 18:59 Intake Total 788.6 / 788.6 271 / 271 Output Total 600 / 600 Balance 788.6 / 788.6 -329 / -329 Weight 95.5 kg Intake: IV 788.6 / 788.6 271 / 271 Precedex Inj 1,000 MCG In NS 200 / 200 146 / 146 Inj 240 ML @ 0.2 MCG/KG/HR 4.77 mls/hr IV.CONT TITRATE PRN Rx# :[id number] NS Inj 1,000 ML @ 70 mls/hr IV. 125 / 125 CONT .[id number] [facility] Rx#: [id number] Activase Drip 77.4 MG In Bag/ 77.4 / 77.4 Syringe 1 EACH @ 77.4 mls/hr IV .SIG ONCE ONE Rx#:[id number] MVI-12 Inj 10 ML Thiamine Inj 511.2 / 511.2 100 MG Folvite Inj 1 MG In NS Inj 500 ML @ 125 mls/hr IV.SIG Q24H [facility] Rx#:[id number] Output: Urine 600 / 600 Other: Date of Last Bowel Movement 09/14/18 09/15/18 # Incontinent Bowel Movements 2 Weight On Admission 95.5 kg Result Diagrams: 09/14/18 19:35 09/14/18 19:35 Objective Remarks: GENERAL: 78-year-old male lightly sedated with Precedex SKIN: Warm and dry. No rash HEAD: Atraumatic. Normocephalic. EYES: Pupils equal and round about 3 mm bilaterally. No scleral icterus. No injection or drainage. ENT: No nasal bleeding or discharge. NECK: Trachea midline. No JVD. CARDIOVASCULAR: RR. S1, S2. No S4. No murmur RESPIRATORY: No accessory muscle use. Clear to auscultation. Breath sounds equal bilaterally. GASTROINTESTINAL: Abdomen soft, non-tender, nondistended. Hepatic and splenic margins not palpable. MUSCULOSKELETAL: Extremities without clubbing, cyanosis, or edema. NEUROLOGICAL: Awake and alert. No obvious cranial nerve deficits. No obvious facial droop. Strength left upper lower extremity. 5 out of 5. Aphasic. Follows commands on left upper extremity and bilateral lower extremities. Gait was not assessed. Five out of 5 muscle strength in the arms and legs other than right upper extremity. Strength right upper lower extremity 4/5. Assessment and Plan - Problem List (1) Essential hypertension Code(s): I10 - Essential (primary) hypertension Status: Chronic (2) Hyperlipidemia Code(s): E78.5 - Hyperlipidemia, unspecified Status: Chronic (3) Diabetes mellitus Code(s): E11.9 - Type 2 diabetes mellitus without complications Status: Chronic (4) Leukocytosis Code(s): D72.829 - Elevated white blood cell count, unspecified Status: Acute (5) Normocytic anemia Code(s): D64.9 - Anemia, unspecified Status: Acute (6) Elevated TSH Code(s): R79.89 - Other specified abnormal findings of blood chemistry Status : Acute (7) Acute ischemic stroke Code(s): I63.9 - Cerebral infarction, unspecified Status: Acute - Assessment and Plan Plan: Neuro/Psych: Acute ischemic stroke with aphasia, right upper lower extremity weakness EtOH use CT brain/CT angiogram brain and neck revealed no acute intracranial findings Evaluated by Dr. Merrill Received alteplase 8.6 mg bolus followed by 77.4 mg over 1 hour Goal keep systolic Bp less than 180, diastolic blood sugar less than 105 F/u hemoglobin A1c and lipid panel 2D echocardiogram GANESH, RPR ordered Vitamin bag daily times 3 days MRI brain when patient stabilized CT brain at 24 hours post alteplase infusion Neurochecks CV: Essential hypertension Hyperlipidemia Right bundle branch block EKG revealed sinus bradycardia with right bundle branch block, left ventricular block. His troponin was 0.02. Currently off nicardipine drip to maintain systolic blood pressure less than 180 , diastolic pressure less than 105 Started on pravastatin 40 mg daily Start aspirin post CT brain 24 hours if no hemorrhage identified Resp: Nasal cannula to maintain saturations greater than equal to 92% Incentive spirometry r while awake As needed albuterol aerosols every 2 hours for dyspnea GI: Speech and swallow eval Pantoprazole for GI prophylaxis Docusate sodium/senna 1 tablet twice daily for bowel regimen : Arnold catheter placed for urinary retention Endo: Diabetes mellitus type 2 Elevated TSH Renal: Creatinine currently within normal limit Monitor urine output Accurate I's and O's. Arnold placed for persistent urinary retention Heme: Normocytic anemia Leukocytosis Monitor CBC daily. Follow trends No indication for transfusion at this time ID: Monitor for signs and symptomatology infection FEN: Hyponatremia Currently normal saline at 70 cc an hour Replace electrolytes as clinically indicated per ICU electrolyte protocol MSK: Access -Utilize peripheral IV. Central line if indicated Prophylaxis -GI -pantoprazole -DVT -SCD/no pharmacological prophylaxis 24 hours post alteplase Level 3 Consult [facility] to assume care 09/16/18 (2) Hyperlipidemia Qualifiers: Hyperlipidemia type: unspecified Qualified Code(s): E78.5 - Hyperlipidemia, unspecified (3) Diabetes mellitus Qualifiers: Diabetes mellitus type: type 2 Diabetes mellitus fci insulin use: unspecified fci insulin use status Diabetes mellitus complication status : with unspecified complications Qualified Code(s): E11.8 - Type 2 diabetes mellitus with unspecified complications (4) Leukocytosis Qualifiers: Leukocytosis type: unspecified Qualified Code(s): D72.829 - Elevated white blood cell count, unspecified
[2018-09-15 12:44] LABS: Baso % (Auto) 0.2 % (0.0-2.0); Eos % (Auto) 0.2 % (0.0-4.0); Hemoglobin 12.5 gm/dL (13.0-17.0); Lymph # (Auto) 1.2 th/mm3 (1.0-4.8); Lymph % (Auto) 12.6 % (9.0-44.0); Mean Corpuscular HGB Conc 35.6 % (32.0-36.0); Mean Corpuscular Volume 92.8 fL (80.0-100.0); Mono # (Auto) 0.8 th/mm3 (0.0-0.9); Mono % (Auto) 8.9 % (0.0-8.0); Neut # (Auto) 7.2 th/mm3 (1.8-7.7); Neut % (Auto) 78.1 % (16.0-70.0); Platelet Count 218 th/mm3 (150-450); Red Blood Count 3.77 mil/mm3 (4.50-5.90); Red Cell Distribution Width 13.1 % (11.6-17.2); White Blood Count 9.3 th/mm3 (4.0-11.0)
[2018-09-15 12:54] LABS: Activated Partial Thrombo Time 24.7 sec (23.4-31.7); INR 1.1 Ratio; Prothrombin Time 10.9 sec (9.8-11.6)
[2018-09-15 13:04] LABS: Albumin 3.6 g/dL (3.4-5.0); Anion Gap 8 meq/L (5-15); Aspartate Aminotransferase 33 U/L (15-37); Blood Urea Nitrogen 14 mg/dL (7-18); Calcium 7.7 mg/dL (8.5-10.1); Carbon Dioxide 26.8 meq/L (21.0-32.0); Chloride 100 meq/L (98-107); Glucose,Random 156 mg/dL (74-106); Magnesium 1.7 mg/dL (1.5-2.5); Potassium 3.9 meq/L (3.5-5.1); Sodium 135 meq/L (136-145)
[2018-09-15 13:07] LABS: Alanine Aminotransferase 25 U/L (12-78); Alkaline Phosphatase 66 U/L (45-117); Glomerular Filtration Rate 68 mL/min (>89); Phosphorus 3.1 mg/dL (2.5-4.9); Total Protein 6.7 g/dL (6.4-8.2)
[2018-09-15 13:09] LABS: Chol/HDL Ratio 2.06 Ratio; HDL Cholesterol 51.9 mg/dL (40.0-60.0)
--- NOTE | 2018-09-15 14:27 | ECG ---
Date Performed: 09/14/2018 Time Performed: 20:21:02 PTAGE: 78 years EKG: SINUS BRADYCARDIA WITH OCCASIONAL VENTRICULAR PREMATURE COMPLEXES RIGHT BUNDLE BRANCH BLOCK LEFT ANTERIOR FASCICULAR BLOCK POSSIBLE LEFT VENTRICULAR HYPERTROPHY POSSIBLE SEPTAL MYOCARDIAL INFA RCTION ABNORMAL ECG NO PREVIOUS TRACING DOCTOR: Dustin Castro Interpretating Date/Time 09/15/2018 14:22:10
--- NOTE | 2018-09-15 17:25 | ECHRPT ---
Indication: CEREBRAL EMBOLISM CONCLUSIONS Normal left ventricular size. Mild concentric left ventricular hypertrophy. Normal left ventricular systolic function with an ejection fraction of 60-65%. Trace mitral valve regurgitation. Aortic valve sclerosis is present. Trace aortic valve regurgitation. There is mild tricuspid valve regurgitation. The estimated pulmonary arterial pressure is 44.3 mmHg. Trivial pulmonary valve regurgitation. BP: / HR: Rhythm: Sinus MEASUREMENTS (Male / Female) Normal Values Technical Quality:Fair 2D ECHO LV Diastolic Diameter PLAX 5.1 cm 4.2 - 5.9 / 3.9 - 5.3 cm LV Systolic Diameter PLAX 3.7 cm IVS Diastolic Thickness 1.1 cm 0.6 - 1.0 / 0.6 - 0.9 cm LVPW Diastolic Thickness 1.1 cm 0.6 - 1.0 / 0.6 - 0.9 cm LV Relative Wall Thickness 0.4 RV Internal Dim ED PLAX 2.4 cm LVOT Diameter 2.0 cm Aortic Root Diameter 3.9 cm LA Systolic Diameter LX 4.2 cm 3.0 - 4.0 / 2.7 - 3.8 cm M-MODE AV Cusp Separation MM 1.8 cm DOPPLER AV Peak Velocity 110.0 cm/s AV Peak Gradient 4.8 mmHg AV Mean Gradient 2.0 mmHg AV Velocity Time Integral 22.2 cm LVOT Peak Velocity 97.8 cm/s LVOT Peak Gradient 3.8 mmHg LVOT Velocity Time Integral 19.4 cm AV Area Cont Eq vti 2.7 cm AV Area Cont Eq pk 2.8 cm Mitral E Point Velocity 78.5 cm/s Mitral A Point Velocity 92.3 cm/s Mitral E to A Ratio 0.9 LV E' Lateral Velocity 9.8 cm/s Mitral E to LV E' Lateral Ratio 8.0 LV E' Septal Velocity 7.7 cm/s Mitral E to LV E' Septal Ratio 10.2 TR Peak Velocity 293.0 cm/s TR Peak Gradient 34.3 mmHg Right Atrial Pressure 10.0 mmHg Pulmonary Artery Systolic Pressu 44.3 mmHg Right Ventricular Systolic Press 44.3 mmHg PV Peak Velocity 79.7 cm/s PV Peak Gradient 2.5 mmHg FINDINGS LEFT VENTRICLE Normal left ventricular size. Mild concentric left ventricular hypertrophy. The left ventricular systolic function is normal with an estimated ejection fraction in the range of 60-65%. RIGHT VENTRICLE Normal right ventricular size and systolic function. LEFT ATRIUM The left atrial size is normal. RIGHT ATRIUM The right atrial size is normal. ATRIAL SEPTUM No atrial level shunt is demonstrated by color flow Doppler interrogation. AORTA The aortic root and proximal ascending aorta are normal in size on limited imaging. MITRAL VALVE Structurally normal mitral valve. Trace mitral valve regurgitation. AORTIC VALVE Aortic valve sclerosis is present. Trace aortic valve regurgitation. No aortic valve stenosis. TRICUSPID VALVE There is mild tricuspid valve regurgitation. The estimated pulmonary arterial pressure is 44.3 mmHg. PULMONARY VALVE Trivial pulmonary valve regurgitation. VESSELS The inferior vena cava is normal in size. PERICARDIUM No pericardial effusion. Dameon Hinds (Electronically Signed) Final Date:15 September 2018 17:24
--- NOTE | 2018-09-15 20:01 | P.CONREH ---
History of Present Illness Consult date: 09/15/18 Reason for Consult: Comprehensive rehabilitation evaluation History of Present Illness: Corona Camcaho is a 78-year-old zlnyy-vani-mdhypoto male with past medical history significant for hypertension, hyperlipidemia and diabetes mellitus who was admitted to [facility] 09/14/18 with change in mental status, aphasia and left-sided weakness. NIH scale was 10. Head CT 09/14 showed no acute intracranial abnormalities. Patient received alteplase per neurology recommendations. He required nicardipine infusion. Patient was noted to have agitation and urinary retention. Arnold placed and agitation improved. Brain MRI 09/15/18 showed no acute intracranial abnormality. Atrophy with mild chronic white matter changes. Patient at this time denies any headache or dizziness. Speech appears to have returned to normal. Feels that his strength is symmetric. Review of Systems Constitutional: Denies weakness Eyes: Denies diplopia Ears, Nose, Mouth, and Throat: Denies dysphagia, Denies headache(s) and Denies hearing loss Cardiovascular: Denies chest pain Comments: Denies any shortness of breath Gastrointestinal: Denies constipation Genitourinary: Reports other (Urinary retention status post Arnold placement) Musculoskeletal: Denies muscle weakness and Denies tingling Skin/Breast: Denies rash Neurologic: Denies loss of vision, Denies memory loss, Denies numbness, Denies sensory deficit and Denies weakness Psychiatric: Denies confusion Hematologic/Lymphatic: Denies easy bruising Allergic/Immunologic: Denies throat swelling PMFSH History History Provided By: Significant Other and 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 Tobacco History Second Hand Smoke Exposure: No Tobacco Use In Past 30 Days: No Smoking Status: Former smoker Alcohol History How Often Do You Have a Drink Containing Alcohol: 4 or more times a week Substance Use History Substance History: No History of Abuse Travel History [facility] Within the Last 8 Weeks: No Recent Travel Out of the Country Within the Last 8 Weeks: No Immunization History Tetanus Immunization: Unsure Medications and Allergies Allergies Allergy/AdvReac Type Severity Reaction Status Date / Time No Known Allergies Allergy Verified 09/14/18 20:39 Home Medications Medication Instructions Recorded Confirmed Type atorvastatin 40 mg PO DAILY 09/15/18 09/15/18 History ezetimibe 10 mg PO DAILY 09/15/18 09/15/18 History metformin 500 mg PO DAILY 09/15/18 09/15/18 History Active Medications: Active Medications Acetaminophen (Tylenol) 650 mg PO Q6H PRN PRN Reason: Fever >101f Hydrocodone Bitart/Acetaminophen (Somers 5/325) 1 tab PO Q4H PRN PRN Reason: PAIN SCALE 1 TO 5 Al Hydroxide/Mg Hydroxide (Milk Of Magnlisa Liq) 30 ml PO Q12H PRN PRN Reason: Mild Constipation Albuterol (Albuterol Neb (Prn)) 2.5 mg NEB Q2HR NEB PRN PRN Reason: SHORTNESS OF BREATH Albuterol (Duoneb Neb ([place])) 1 ampul NEB Q6HR NEB [place] Last Admin: 09/15/18 15:44 Dose: 1 ampul Bisacodyl (Dulcolax Supp) 10 mg RECTAL DAILY PRN PRN Reason: SEVERE CONSITIPATION Chlorhexidine Gluconate (Chlorhexidine 2% Cloth) 3 pack TOPICAL DAILY@0400 [place] Stop: 09/20/18 03:59 Last Admin: 09/15/18 05:43 Dose: 3 pack Chlorhexidine Gluconate (Chlorhexidine 2% Cloth) 3 pack TOPICAL DAILY@0400 PRN PRN Reason: Extra cloth needed Stop: 09/20/18 03:59 Dextrose (D50w Vial) 50 ml IV.PUSH UNSCH PRN PRN Reason: PER HYPOGLYCEMIA PROTOCOL Glucagon (Glucagon Inj) 1 mg OTHER UNSCH PRN PRN Reason: for Hypoglycemia Protocol Sodium Chloride (Ns Inj) 1,000 mls @ 70 mls/hr IV.CONT .[id number] [facility] Last Infusion: 09/15/18 17:49 Dose: 70 mls/hr Nicardipine HCl 25 mg/ Sodium (Chloride) 250 mls @ 25 mls/hr IV.CONT TITRATE PRN; Protocol PRN Reason: Per Protocol Last Titration: 09/14/18 23:00 Dose: 0 mg/hr, 0 mls/hr Magnesium Sulfate 4 gm/ Sodium (Chloride) 100 mls @ 50 mls/hr IV.SIG UNSCH PRN PRN Reason: For Magnesium 0.9 - 1.1 mg/dL Magnesium Sulfate 2 gm/ Sodium (Chloride) 100 mls @ 50 mls/hr IV.SIG UNSCH PRN PRN Reason: For Magnesium 1.2 - 1.6 mg/dL Potassium Chloride (Kcl 40 Meq Premix Inj) 40 meq in 100 mls @ 25 mls/hr IV.SIG Q2H PRN PRN Reason: For Potassium 2.8 - 3.2 mEq/L Potassium Chloride (Kcl 20 Meq Premix Inj) 20 meq in 100 mls @ 50 mls/hr IV.SIG Q2H PRN PRN Reason: For Potassium 3.3 - 3.5 mEq/L Potassium Chloride (Kcl 40 Meq Premix Inj) 40 meq in 100 mls @ 25 mls/hr IV.SIG UNSCH PRN PRN Reason: For Potassium 3.3 - 3.5 mEq/L Potassium Chloride (Kcl 20 Meq Premix Inj) 20 meq in 100 mls @ 50 mls/hr IV.SIG Q2H PRN PRN Reason: For Potassium 2.8 - 3.2 mEq/L Potassium Phosphate 30 mmol/ (Sodium Chloride) 260 mls @ 42 mls/hr IV.SIG UNSCH PRN PRN Reason: SEE LABEL COMMENTS Sodium Phosphate 30 mmol/ (Sodium Chloride) 260 mls @ 42 mls/hr IV.SIG UNSCH PRN PRN Reason: For Phosphorus < 2.5 mg/dL Multivitamins 10 ml/ Thiamine HCl 100 mg/ Folic Acid 1 mg/Sodium Chloride 511.2 mls @ 125 mls/hr IV.SIG Q24H [place] Stop: 09/17/18 06:06 Last Infusion: 09/15/18 05:12 Dose: Infused Insulin Aspart (Novolog Insulin Correctional Sugar Inj) 0 unit SQ Q6HR [place]; Protocol Last Admin: 09/15/18 17:18 Dose: Not Given Lactulose (Lactulose Liq) 30 ml PO DAILY PRN PRN Reason: SEVERE CONSITIPATION Magnesium Oxide (Mag-Ox) 800 mg PO UNSCH PRN PRN Reason: For Magnesium 1.2 - 1.6 mg/dL Metoclopramide HCl (Reglan Inj) 5 mg IV.PUSH Q6HR [place]; Protocol Last Admin: 09/15/18 17:19 Dose: 5 mg Morphine Sulfate (Morphine Inj) 2 mg IV.PUSH Q2H PRN PRN Reason: PAIN SCALE 6 TO 10 Last Admin: 09/15/18 03:06 Dose: 2 mg Ondansetron HCl (Zofran Inj) 4 mg IV.PUSH Q6H PRN PRN Reason: NAUSEA OR VOMITING Pantoprazole Sodium (Protonix Inj) 40 mg IV.PUSH Q24H [facility] Last Admin: 09/15/18 00:33 Dose: 40 mg Potassium Chloride (Kcl Liq) 40 meq PO UNSCH PRN PRN Reason: Potassium level 3.3-3.5 mEq/L Potassium Chloride (Kcl Liq) 40 meq PO UNSCH PRN PRN Reason: POTASSIUM LESS THAN 3.5 Potassium Phosphate (K-Phos Original) 2,000 mg PO Q4H PRN PRN Reason: Phosphorus Less Than 2.5 mg/dL Potassium Phosphate (K-Phos Original) 2,000 mg PO UNSCH PRN PRN Reason: SEE LABEL COMMENTS Pravastatin Sodium (Pravachol) 40 mg PO [facility] Senna/Docusate Sodium (Tara-Colace) 1 tab PO BID [facility] Last Admin: 09/15/18 08:17 Dose: Not Given Sennosides (Senokot) 17.2 mg PO Q12H PRN PRN Reason: Moderate Constipation Sodium Chloride (Ns Flush) 2 ml IV.FLUSH BID [facility] Last Admin: 09/15/18 08:17 Dose: Not Given Sodium Chloride (Ns Flush) 2 ml IV.FLUSH PRN PRN PRN Reason: FLUSH AFTER USING IV ACCESS Sodium Chloride (Ns Flush) 2 ml IV.FLUSH BID [facility] Last Admin: 09/15/18 08:17 Dose: Not Given Sodium Chloride (Ns Flush) 2 ml IV.FLUSH PRN PRN PRN Reason: FLUSH AFTER USING IV ACCESS Exam Physical Examination Vital Signs / I&O: Vital Signs 09/14/18 20:15 09/14/18 20:30 09/14/18 20:35 Temperature Pulse Rate 53 L 57 L 56 L Respiratory Rate 20 16 18 Blood Pressure 178/85 H 183/85 H 191/85 H Pulse Oximetry 99 100 99 09/14/18 20:38 09/14/18 20:45 09/14/18 20:48 Temperature Pulse Rate 57 L 59 L 64 Respiratory Rate 18 18 18 Blood Pressure 183/85 H 175/79 H 167/71 H Pulse Oximetry 100 09/14/18 20:53 09/14/18 20:58 09/14/18 21:03 Temperature Pulse Rate 61 62 62 Respiratory Rate 20 18 Blood Pressure 162/75 H 157/71 H 152/73 H Pulse Oximetry 100 99 09/14/18 21:08 02/18/19 21:13 09/14/18 21:18 Temperature Pulse Rate 68 71 69 Respiratory Rate 16 18 Blood Pressure 165/72 H 180/78 H 172/72 H Pulse Oximetry 99 09/14/18 21:23 09/14/18 21:28 09/14/18 21:33 Temperature Pulse Rate 68 68 70 Respiratory Rate 16 20 Blood Pressure 162/62 H 159/67 H 140/66 Pulse Oximetry 100 09/14/18 21:38 09/14/18 21:40 09/14/18 21:43 Temperature Pulse Rate 72 72 73 Respiratory Rate 18 20 Blood Pressure 169/70 H 167/69 H Pulse Oximetry 99 09/14/18 21:55 09/14/18 22:00 09/14/18 23:25 Temperature Pulse Rate 76 70 95 H Respiratory Rate 18 18 21 Blood Pressure 159/101 H 169/68 H Pulse Oximetry 100 100 09/15/18 00:00 09/15/18 00:08 09/15/18 01:00 Temperature 98.8 F Pulse Rate 98 H 102 H 77 Respiratory Rate 23 26 H 22 Blood Pressure 158/89 H Pulse Oximetry 95 96 97 09/15/18 01:04 09/15/18 02:00 09/15/18 02:04 Temperature Pulse Rate 73 68 65 Respiratory Rate 21 22 22 Blood Pressure 146/64 H 142/65 H Pulse Oximetry 97 92 L 92 L 09/15/18 03:00 09/15/18 03:04 09/15/18 03:22 Temperature Pulse Rate 88 69 79 Respiratory Rate 24 20 28 H Blood Pressure 169/77 H Pulse Oximetry 91 L 09/15/18 04:00 09/15/18 04:04 09/15/18 05:00 Temperature 98.9 F Pulse Rate 65 66 67 Respiratory Rate 23 22 21 Blood Pressure 152/69 H Pulse Oximetry 93 L 94 L 97 09/15/18 05:25 09/15/18 06:00 09/15/18 06:04 Temperature Pulse Rate 64 66 64 Respiratory Rate 22 21 21 Blood Pressure 182/82 H 160/72 H Pulse Oximetry 94 L 95 09/15/18 07:00 09/15/18 07:04 09/15/18 07:43 Temperature Pulse Rate 69 72 Respiratory Rate 24 65 H Blood Pressure 170/76 H Pulse Oximetry 95 95 97 09/15/18 07:48 09/15/18 07:53 09/15/18 07:55 Temperature 98.9 F Pulse Rate 59 L Respiratory Rate 20 Blood Pressure Pulse Oximetry 97 09/15/18 07:57 09/15/18 08:00 09/15/18 08:04 Temperature Pulse Rate 58 L 64 Respiratory Rate 21 26 H Blood Pressure 157/83 H Pulse Oximetry 97 97 98 09/15/18 08:51 09/15/18 09:00 09/15/18 09:04 Temperature Pulse Rate 55 L 55 L 56 L Respiratory Rate 20 26 H 20 Blood Pressure 120/58 L Pulse Oximetry 99 98 09/15/18 10:28 09/15/18 10:42 09/15/18 11:00 Temperature Pulse Rate 58 L 56 L 58 L Respiratory Rate 18 17 Blood Pressure 141/64 H 142/65 H Pulse Oximetry 99 100 100 09/15/18 11:18 09/15/18 11:32 09/15/18 12:00 Temperature 98.2 F Pulse Rate 58 L 59 L Respiratory Rate 18 18 Blood Pressure 153/67 H Pulse Oximetry 97 98 09/15/18 12:24 09/15/18 13:00 09/15/18 13:18 Temperature Pulse Rate 67 57 L 56 L Respiratory Rate 35 H 16 17 Blood Pressure 127/63 137/62 Pulse Oximetry 98 98 98 09/15/18 14:00 09/15/18 14:18 09/15/18 15:00 Temperature Pulse Rate 56 L 58 L 58 L Respiratory Rate 17 17 15 Blood Pressure 157/71 H Pulse Oximetry 99 96 98 09/15/18 15:18 09/15/18 15:44 09/15/18 16:00 Temperature 98.4 F Pulse Rate 58 L 63 68 Respiratory Rate 16 17 15 Blood Pressure 161/73 H Pulse Oximetry 99 97 09/15/18 16:18 09/15/18 17:00 09/15/18 17:18 Temperature Pulse Rate 71 70 68 Respiratory Rate 24 29 H 23 Blood Pressure 150/66 H 152/69 H Pulse Oximetry 96 97 97 09/15/18 18:00 Temperature Pulse Rate 69 Respiratory Rate 21 Blood Pressure Pulse Oximetry 97 Intake & Output 09/15/18 09/15/18 09/16/18 06:59 18:59 06:59 Intake Total 788.6 / 788.6 896 / 896 Output Total 3200 / 3200 Balance 788.6 / 788.6 -2304 / -2304 Weight 95.5 kg Intake: IV 788.6 / 788.6 896 / 896 Precedex Inj 1,000 MCG In NS 200 / 200 146 / 146 Inj 240 ML @ 0.2 MCG/KG/HR 4.77 mls/hr IV.CONT TITRATE PRN Rx# :[id number] NS Inj 1,000 ML @ 70 mls/hr IV. 750 / 750 CONT .[id number] [facility] Rx#: [id number] Activase Drip 77.4 MG In Bag/ 77.4 / 77.4 Syringe 1 EACH @ 77.4 mls/hr IV .SIG ONCE ONE Rx#:[id number] MVI-12 Inj 10 ML Thiamine Inj 511.2 / 511.2 100 MG Folvite Inj 1 MG In NS Inj 500 ML @ 125 mls/hr IV.SIG Q24H [facility] Rx#:[id number] Output: Urine 600 / 600 Urine Amount (Catheter) 2600 / 2600 Coude 2600 / 2600 Other: Date of Last Bowel Movement 09/14/18 09/15/18 # Incontinent Bowel Movements 2 Weight On Admission 95.5 kg Intake & Output 09/13/18 09/14/18 09/15/18 09/16/18 06:59 06:59 06:59 06:59 Intake Total 788.6 / 788.6 896 / 896 Output Total 3200 / 3200 Balance 788.6 / 788.6 -2304 / -2304 Weight 95.5 kg General: No acute distress and Other ( at bedside) Respiratory: Lungs CTA, BS equal and Symmetrical expansion Gastrointestinal: Positive bowel sounds, Non-distended and Non-tender Date of Last Bowel Movement: 09/15/18 Cardiovascular: Normal rate and Regular rhythm Skin: No rash Musculoskeletal: Tenderness (No calf tenderness) and Swelling (No lower extremity edema) Psychiatric: Cooperative and Appropriate mood & affect Neurologic Orientation: oriented to: Self, Place, Time and Situation Neurologic: Cranial nerves (Intact 2 through 12) and Speech (No word finding difficulties and no dysarthria noted) Motor: Right Upper Extremity (5/5), Left Upper Extremity (5/5), Right Lower Extremity (5/5) and Left Lower Extremity (5/5) Sensory: Intact to light touch both upper and lower extremities DTRs: Normal Babinski: Negative Clonus: Negative Results Labs CBC & Chem 7: 09/16/18 15:31 09/16/18 15:[address] 09/14/18 19:27 CONCLUSION: 1. No acute intracranial abnormalities. Report was called by Dr. Huang to Dr. Merrill at 8:23 PM.. Head CTA 09/14/18 19:27 CONCLUSION: 1. Negative CTA Head. Report was called by Dr. Enriquez to Dr. Merrill at 8:42 PM on September 14 2018. Neck CTA 09/14/18 19:27 CONCLUSION: 1. Moderate plaque at the carotid bifurcations. No hemodynamically significant stenosis. Report was called by Dr. Enriqeuz to Dr. Merrill at 8:42 PM Head MRI 09/15/18 20:31 CONCLUSION: 1. No acute intracranial abnormality. 2. Atrophy and mild, chronic white matter changes. ABG Impressions Head CT 09/14/18 19:27 CONCLUSION: 1. No acute intracranial abnormalities. Report was called by Dr. Huang to Dr. Merrill at 8:23 PM.. Head CTA 09/14/18 19:27 CONCLUSION: 1. Negative CTA Head. Report was called by Dr. Enriquez to Dr. Merrill at 8:42 PM on September 14 2018. Neck CTA 09/14/18 19:27 CONCLUSION: 1. Moderate plaque at the carotid bifurcations. No hemodynamically significant stenosis. Report was called by Dr. Enriquez to Dr. Merrill at 8:42 PM Head MRI 09/15/18 20:31 CONCLUSION: 1. No acute intracranial abnormality. 2. Atrophy and mild, chronic white matter changes. Assessment and Plan (1) Acute ischemic stroke: Status: Acute Code(s): I63.9 - Cerebral infarction, unspecified (2) Essential hypertension: Status: Chronic Code(s): I10 - Essential (primary) hypertension (3) Hyperlipidemia: Status: Chronic Code(s): E78.5 - Hyperlipidemia, unspecified (4) Diabetes mellitus: Status: Chronic Code(s): E11.9 - Type 2 diabetes mellitus without complications Plan Assessment: 1. Probable left hemispheric stroke with aphasia and right-sided hemiparesis status post IV TPA 2. Hypertension 3. Hyperlipidemia 4. Diabetes mellitus Recommendations: 1. PT/OT evaluations are in process. Patient is currently on head of bed flat restrictions. Given current motor and sensory exam would anticipate the patient should progress well with mobility and ADLs and be able to be discharged home 2. Speech therapy eval of swallowing cognition are pending. 3. Will follow regarding additional rehab needs at discharge. Anticipate the patient will be able to return home with family to home in [place] and not need inpatient rehabilitation. 4. Will follow while hospitalized. Thank you for this consult _ (1) Diabetes mellitus Qualifiers: Chronic kidney disease stage: Diabetes mellitus complication detail: Diabetes mellitus complication status: with unspecified complications Diabetes mellitus watermaster insulin use: unspecified assisted insulin use status Diabetes mellitus macular edema: Diabetes mellitus type: type 2 Diabetic retinopathy severity: Laterality: Proliferative retinopathy type: Qualified Code(s): E11.8 - Type 2 diabetes mellitus with unspecified complications (2) Hyperlipidemia Qualifiers: Hyperlipidemia type: unspecified Qualified Code(s): E78.5 - Hyperlipidemia, unspecified
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
--- NOTE | 2018-09-15 21:07 | CT ---
EXAM DATE: 09/15/2018 9:02 PM EST AGE/SEX: 78 years / Male INDICATIONS: 24 Hours post TPA. CLINICAL DATA: This is the patient's initial encounter. Patient reports that signs and symptoms have been present for 1 day and indicates a pain score of 4/10. MEDICAL/SURGICAL HISTORY: Diabetes. Hypertension. None. RADIATION DOSE: 39.99 CTDI (mGy) COMPARISON: [facility], CT STROKE ALERT HEAD WO CON, 09/14/2018. . TECHNIQUE: CT of the head without contrast. Using automated exposure control and adjustment of the mA and/or kV according to patient size, radiation dose was kept as low as reasonably achievable to ob tain optimal diagnostic quality images. DICOM format image data is available electronically for revi ew and comparison. FINDINGS: Cerebrum: The ventricles are normal for age. No evidence of midline shift, mass lesion, hemorrhage or acute infarction. No extraaxial fluid collections are seen. Posterior Fossa: The cerebellum and brainstem are intact. The 4th ventricle is midline. The cerebe llopontine angle is unremarkable. Extracranial: The visualized portion of the orbits is intact. Skull: The calvaria is intact. No evidence of skull fracture. There is mild focal mucosal disease a t the posterior medial left maxillary sinus. CONCLUSION: No acute abnormality is seen. No hemorrhage is seen. . . Electronically signed by: Tong Malone MD Board Certified Radiologist 09/15/2018 9:05 PM EST
[2018-09-16] MEDS: Pantoprazole Inj 40 MG Vial IV.PUSH SCH ×2 (00:55→23:17)
[2018-09-16] MEDS: Insulin NovoLOG Aspart Correctional Sugar Inj SQ SCH ×5 (00:57→23:16)
[2018-09-16] MEDS: Multivitamin Inj 10 ML, Thiamine Inj 100 MG, Folic Acid Inj 1 MG in Sodium Chlor 0.9% I... IV.SIG SCH (02:59)
[2018-09-16] MEDS: Chlorhexidine Gluconate 2% 1 Pack (2 Cloths) TOPICAL SCH (04:53)
[2018-09-16] MEDS: Sod Chloride 0.9% Inj 1,000 ML IV.CONT SCH ×2 (06:36→14:58)
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
[2018-09-16] MEDS: Senna/Docusate Sodium 8.6/50 MG Tablet PO SCH ×2 (08:19→21:07)
--- NOTE | 2018-09-16 11:01 | P.PNIM ---
Subjective Interval history: Patient seen at the bedside on follow up after stroke alert Patient needs inpatient rehab but he is visiting from [place] and has a unique insurance for travelers which wont pay for inpatient rehab and apparently needs to go to [place] if thats needed. no active chest pain no palp no dizziness no sob + elizabeth draining urine no complaints currently and aphasia is gone Physical Exam Vital signs: Vital Signs 09/15/18 11:00 09/15/18 11:18 09/15/18 11:32 Temperature 98.2 F Pulse Rate 58 L 58 L Respiratory Rate 17 18 Blood Pressure 142/65 H 153/67 H Pulse Oximetry 100 97 09/15/18 12:00 09/15/18 12:24 09/15/18 13:00 Temperature Pulse Rate 59 L 67 57 L Respiratory Rate 18 35 H 16 Blood Pressure 127/63 Pulse Oximetry 98 98 98 09/15/18 13:18 09/15/18 14:00 09/15/18 14:18 Temperature Pulse Rate 56 L 56 L 58 L Respiratory Rate 17 17 17 Blood Pressure 137/62 157/71 H Pulse Oximetry 98 99 96 09/15/18 15:00 09/15/18 15:18 09/15/18 15:44 Temperature Pulse Rate 58 L 58 L 63 Respiratory Rate 15 16 17 Blood Pressure 161/73 H Pulse Oximetry 98 99 09/15/18 16:00 09/15/18 16:18 09/15/18 17:00 Temperature 98.4 F Pulse Rate 68 71 70 Respiratory Rate 15 24 29 H Blood Pressure 150/66 H Pulse Oximetry 97 96 97 09/15/18 17:18 09/15/18 18:00 09/15/18 18:09 Temperature Pulse Rate 68 69 68 Respiratory Rate 23 21 17 Blood Pressure 152/69 H 139/63 Pulse Oximetry 97 97 96 09/15/18 18:18 09/15/18 19:00 09/15/18 19:18 Temperature Pulse Rate 67 63 66 Respiratory Rate 24 17 18 Blood Pressure 129/60 129/58 L Pulse Oximetry 96 96 97 09/15/18 20:00 09/15/18 20:18 09/15/18 21:00 Temperature 98.1 F Pulse Rate 75 73 71 Respiratory Rate 21 20 20 Blood Pressure 139/65 Pulse Oximetry 96 96 93 L 09/15/18 21:13 09/15/18 21:18 09/15/18 22:00 Temperature Pulse Rate 65 65 73 Respiratory Rate 15 13 21 Blood Pressure 153/70 H Pulse Oximetry 93 L 99 91 L 09/15/18 22:18 09/15/18 23:00 09/15/18 23:18 Temperature Pulse Rate 82 65 65 Respiratory Rate 39 H 15 16 Blood Pressure 165/72 H 145/64 H Pulse Oximetry 95 98 98 09/16/18 00:00 09/16/18 00:18 09/16/18 01:00 Temperature 98.4 F Pulse Rate 65 64 65 Respiratory Rate 17 18 20 Blood Pressure 167/72 H Pulse Oximetry 98 97 96 09/16/18 01:18 09/16/18 02:00 09/16/18 02:18 Temperature Pulse Rate 66 62 59 L Respiratory Rate 20 23 20 Blood Pressure 156/68 H 144/64 H Pulse Oximetry 98 99 99 09/16/18 03:00 09/16/18 03:18 09/16/18 03:31 Temperature Pulse Rate 65 68 73 Respiratory Rate 20 20 20 Blood Pressure 148/65 H Pulse Oximetry 96 98 09/16/18 04:00 09/16/18 04:18 09/16/18 05:00 Temperature 98.1 F Pulse Rate 73 71 67 Respiratory Rate 19 18 41 H Blood Pressure 150/65 H Pulse Oximetry 94 L 96 97 09/16/18 05:18 09/16/18 06:00 09/16/18 06:18 Temperature Pulse Rate 66 70 72 Respiratory Rate 50 H 18 17 Blood Pressure 170/76 H 134/60 Pulse Oximetry 97 96 96 09/16/18 07:00 09/16/18 07:18 09/16/18 08:00 Temperature 98.4 F Pulse Rate 72 68 67 Respiratory Rate 16 27 H 22 Blood Pressure 128/73 Pulse Oximetry 96 95 94 L 09/16/18 08:18 09/16/18 08:58 09/16/18 09:00 Temperature Pulse Rate 64 73 72 Respiratory Rate 17 35 H 30 H Blood Pressure 172/77 H 174/81 H Pulse Oximetry 95 95 96 09/16/18 09:15 09/16/18 10:00 Temperature Pulse Rate 71 71 Respiratory Rate 18 26 H Blood Pressure 167/77 H Pulse Oximetry 95 95 Intake & Output 09/15/18 09/16/18 09/16/18 18:59 06:59 18:59 Intake Total 896 / 896 1000 / 1000 111.2 / 111.2 Output Total 3200 / 3200 1225 / 1225 Balance -2304 / -2304 -225 / -225 111.2 / 111.2 Weight 89.8 kg Intake: IV 896 / 896 1000 / 1000 111.2 / 111.2 Precedex Inj 1,000 MCG In NS 146 / 146 Inj 240 ML @ 0.2 MCG/KG/HR 4.77 mls/hr IV.CONT TITRATE PRN Rx# :[id number] NS Inj 1,000 ML @ 70 mls/hr IV. 750 / 750 600 / 600 CONT .[id number] [facility] Rx#: [id number] MVI-12 Inj 10 ML Thiamine Inj 400 / 400 111.2 / 111.2 100 MG Folvite Inj 1 MG In NS Inj 500 ML @ 125 mls/hr IV.SIG Q24H [facility] Rx#:[id number] Output: Urine 600 / 600 Urine Amount (Catheter) 2600 / 2600 1225 / 1225 Coude 2600 / 2600 1225 / 1225 Other: Date of Last Bowel Movement 09/15/18 09/15/18 # Incontinent Bowel Movements 2 gen: NAD heent: eomi, perrla cvs: s1/s2, rrr resp: cta gi: soft, non tender, non distended, + bowel sounds ext: no edema neuro: CN 2-12 grossly intact, no facial droop, no slurred speech, no tongue deviation, no apashia Urinary Catheter Management Coude: Cath placed during this visit: yes Reason for continuing: Acute urinary retention Insertion date: 09/15/18 Insertion time: 08:35 Results Labs CBC & Chem 7: 09/15/18 12:24 09/15/18 12:24 Imaging Imaging: Impressions Head CT 09/15/18 20:00 CONCLUSION: No acute abnormality is seen. No hemorrhage is seen. . . Assessment and Plan (1) Essential hypertension: Code(s): I10 - Essential (primary) hypertension Status: Chronic (2) Hyperlipidemia: Code(s): E78.5 - Hyperlipidemia, unspecified Status: Chronic (3) Diabetes mellitus: Code(s): E11.9 - Type 2 diabetes mellitus without complications Status: Chronic (4) Leukocytosis: Code(s): D72.829 - Elevated white blood cell count, unspecified Status: Acute (5) Normocytic anemia: Code(s): D64.9 - Anemia, unspecified Status: Acute (6) Elevated TSH: Code(s): R79.89 - Other specified abnormal findings of blood chemistry Status: Acute (7) Acute ischemic stroke: Code(s): I63.9 - Cerebral infarction, unspecified Status: Acute Plan patient is a 78 year old male with history of HTN who presented to [place] as a stroke alert noted to have probable LEFT hemisphere CVA which resolved with TPA neurology: LEFT hemisphere CVA with aphasia - symptoms completely resolved - Neurology input regarding d/c planning pending - ASA 325mg - CTH repeated and no abn noted - EEG without seizure noted - once discharged to [place] should see PMD for referral to a manufacturing engineering director for consideration of a loop recorder to eval pAfib - patient is clear for travel by air ambulance and ok for downgrade out the ICU to regular med/surg unit today when bed available - continue tele monitoring - ekg prn chest pain - remove elizabeth catheter and TOV - PT has evaluated and recommend rehab - CM/SW team working on coordinating care once discharged as he may need to return to [place] for rehab - dvt ppx code: fc dispo: dc planning 24-48hrs plan discussed with patient and at the bedside NO am labwork for 09/17 in anticipated discharge _ (1) Diabetes mellitus Qualifiers: Chronic kidney disease stage: Diabetes mellitus complication detail: Diabetes mellitus complication status: with unspecified complications Diabetes mellitus long term care social worker insulin use: unspecified fdc insulin use status Diabetes mellitus macular edema: Diabetes mellitus type: type 2 Diabetic retinopathy severity: Laterality: Proliferative retinopathy type: Qualified Code(s): E11.8 - Type 2 diabetes mellitus with unspecified complications (2) Hyperlipidemia Qualifiers: Hyperlipidemia type: unspecified Qualified Code(s): E78.5 - Hyperlipidemia, unspecified (3) Leukocytosis Qualifiers: Leukocytosis type: unspecified Qualified Code(s): D72.829 - Elevated white blood cell count, unspecified
[2018-09-16] MEDS: Aspirin 325 MG Tablet PO SCH (11:31)
[2018-09-16] MEDS ORDERED: hydrALAZINE HCl Inj 20 MG/ML Vial ONE (11:47)
[2018-09-16] MEDS ORDERED: hydrALAZINE HCl Inj 20 MG/ML Vial IV.PUSH ONE (11:50)
[2018-09-16] MEDS: Ramipril 5 MG Capsule PO SCH (12:25)
--- NOTE | 2018-09-16 13:49 | P.PNNEU ---
Subjective Subjective Comments: pt feels back to normal Active Medications: Active Medications Acetaminophen (Tylenol) 650 mg PO Q6H PRN PRN Reason: Fever >101f Hydrocodone Bitart/Acetaminophen ([place] 5/325) 1 tab PO Q4H PRN PRN Reason: PAIN SCALE 1 TO 5 Al Hydroxide/Mg Hydroxide (Milk Of Manoj Berriosq) 30 ml PO Q12H PRN PRN Reason: Mild Constipation Albuterol (Albuterol Neb (Prn)) 2.5 mg NEB Q2HR NEB PRN PRN Reason: SHORTNESS OF BREATH Albuterol (Duoneb Neb ([place])) 1 ampul NEB Q6HR NEB [facility] Last Admin: 09/16/18 11:35 Dose: Not Given Aspirin (Aspirin) 325 mg PO DAILY [facility] Last Admin: 09/16/18 11:31 Dose: 325 mg Bisacodyl (Dulcolax Supp) 10 mg RECTAL DAILY PRN PRN Reason: SEVERE CONSITIPATION Chlorhexidine Gluconate (Chlorhexidine 2% Cloth) 3 pack TOPICAL DAILY@0400 [facility] Stop: 09/20/18 03:59 Last Admin: 09/16/18 04:53 Dose: Not Given Chlorhexidine Gluconate (Chlorhexidine 2% Cloth) 3 pack TOPICAL DAILY@0400 PRN PRN Reason: Extra cloth needed Stop: 09/20/18 03:59 Dextrose (D50w Vial) 50 ml IV.PUSH UNSCH PRN PRN Reason: PER HYPOGLYCEMIA PROTOCOL Glucagon (Glucagon Inj) 1 mg OTHER UNSCH PRN PRN Reason: for Hypoglycemia Protocol Sodium Chloride (Ns Inj) 1,000 mls @ 70 mls/hr IV.CONT .[id number] [facility] Last Infusion: 09/16/18 06:36 Dose: 0 mls/hr Nicardipine HCl 25 mg/ Sodium (Chloride) 250 mls @ 25 mls/hr IV.CONT TITRATE PRN; Protocol PRN Reason: Per Protocol Last Titration: 09/14/18 23:00 Dose: 0 mg/hr, 0 mls/hr Magnesium Sulfate 4 gm/ Sodium (Chloride) 100 mls @ 50 mls/hr IV.SIG UNSCH PRN PRN Reason: For Magnesium 0.9 - 1.1 mg/dL Magnesium Sulfate 2 gm/ Sodium (Chloride) 100 mls @ 50 mls/hr IV.SIG UNSCH PRN PRN Reason: For Magnesium 1.2 - 1.6 mg/dL Potassium Chloride (Kcl 40 Meq Premix Inj) 40 meq in 100 mls @ 25 mls/hr IV.SIG Q2H PRN PRN Reason: For Potassium 2.8 - 3.2 mEq/L Potassium Chloride (Kcl 20 Meq Premix Inj) 20 meq in 100 mls @ 50 mls/hr IV.SIG Q2H PRN PRN Reason: For Potassium 3.3 - 3.5 mEq/L Potassium Chloride (Kcl 40 Meq Premix Inj) 40 meq in 100 mls @ 25 mls/hr IV.SIG UNSCH PRN PRN Reason: For Potassium 3.3 - 3.5 mEq/L Potassium Chloride (Kcl 20 Meq Premix Inj) 20 meq in 100 mls @ 50 mls/hr IV.SIG Q2H PRN PRN Reason: For Potassium 2.8 - 3.2 mEq/L Potassium Phosphate 30 mmol/ (Sodium Chloride) 260 mls @ 42 mls/hr IV.SIG UNSCH PRN PRN Reason: SEE LABEL COMMENTS Sodium Phosphate 30 mmol/ (Sodium Chloride) 260 mls @ 42 mls/hr IV.SIG UNSCH PRN PRN Reason: For Phosphorus < 2.5 mg/dL Multivitamins 10 ml/ Thiamine HCl 100 mg/ Folic Acid 1 mg/Sodium Chloride 511.2 mls @ 125 mls/hr IV.SIG Q24H [place] Stop: 09/17/18 06:06 Last Infusion: 09/16/18 07:30 Dose: Infused Insulin Aspart (Novolog Insulin Correctional Sugar Inj) 0 unit SQ Q6HR [place]; Protocol Last Admin: 09/16/18 12:25 Dose: 1 unit Lactulose (Lactulose Liq) 30 ml PO DAILY PRN PRN Reason: SEVERE CONSITIPATION Magnesium Oxide (Mag-Ox) 800 mg PO UNSCH PRN PRN Reason: For Magnesium 1.2 - 1.6 mg/dL Metoclopramide HCl (Reglan Inj) 5 mg IV.PUSH Q6HR [place]; Protocol Last Admin: 09/16/18 12:25 Dose: 5 mg Morphine Sulfate (Morphine Inj) 2 mg IV.PUSH Q2H PRN PRN Reason: PAIN SCALE 6 TO 10 Last Admin: 09/15/18 03:06 Dose: 2 mg Ondansetron HCl (Zofran Inj) 4 mg IV.PUSH Q6H PRN PRN Reason: NAUSEA OR VOMITING Pantoprazole Sodium (Protonix Inj) 40 mg IV.PUSH Q24H [facility] Last Admin: 09/16/18 00:55 Dose: 40 mg Potassium Chloride (Kcl Liq) 40 meq PO UNSCH PRN PRN Reason: Potassium level 3.3-3.5 mEq/L Potassium Chloride (Kcl Liq) 40 meq PO UNSCH PRN PRN Reason: POTASSIUM LESS THAN 3.5 Potassium Phosphate (K-Phos Original) 2,000 mg PO Q4H PRN PRN Reason: Phosphorus Less Than 2.5 mg/dL Potassium Phosphate (K-Phos Original) 2,000 mg PO UNSCH PRN PRN Reason: SEE LABEL COMMENTS Pravastatin Sodium (Pravachol) 40 mg PO [facility] Last Admin: 09/15/18 20:16 Dose: 40 mg Ramipril (Altace) 5 mg PO DAILY [facility] Last Admin: 09/16/18 12:25 Dose: 5 mg Senna/Docusate Sodium (Tara-Colace) 1 tab PO BID [facility] Last Admin: 09/16/18 08:19 Dose: 1 tab Sennosides (Senokot) 17.2 mg PO Q12H PRN PRN Reason: Moderate Constipation Sodium Chloride (Ns Flush) 2 ml IV.FLUSH BID [facility] Last Admin: 09/16/18 08:19 Dose: Not Given Sodium Chloride (Ns Flush) 2 ml IV.FLUSH PRN PRN PRN Reason: FLUSH AFTER USING IV ACCESS Sodium Chloride (Ns Flush) 2 ml IV.FLUSH BID [facility] Last Admin: 09/16/18 08:19 Dose: Not Given Sodium Chloride (Ns Flush) 2 ml IV.FLUSH PRN PRN PRN Reason: FLUSH AFTER USING IV ACCESS Allergies/Adverse Reactions: Allergies Allergy/AdvReac Type Severity Reaction Status Date / Time No Known Allergies Allergy Verified 09/14/18 20:39 Physical Exam Vital signs: Vital Signs 09/15/18 14:00 09/15/18 14:18 09/15/18 15:00 Temperature Pulse Rate 56 L 58 L 58 L Respiratory Rate 17 17 15 Blood Pressure 157/71 H Pulse Oximetry 99 96 98 09/15/18 15:18 09/15/18 15:44 09/15/18 16:00 Temperature 98.4 F Pulse Rate 58 L 63 68 Respiratory Rate 16 17 15 Blood Pressure 161/73 H Pulse Oximetry 99 97 09/15/18 16:18 09/15/18 17:00 09/15/18 17:18 Temperature Pulse Rate 71 70 68 Respiratory Rate 24 29 H 23 Blood Pressure 150/66 H 152/69 H Pulse Oximetry 96 97 97 09/15/18 18:00 09/15/18 18:09 09/15/18 18:18 Temperature Pulse Rate 69 68 67 Respiratory Rate 21 17 24 Blood Pressure 139/63 129/60 Pulse Oximetry 97 96 96 09/15/18 19:00 09/15/18 19:18 09/15/18 20:00 Temperature 98.1 F Pulse Rate 63 66 75 Respiratory Rate 17 18 21 Blood Pressure 129/58 L Pulse Oximetry 96 97 96 09/15/18 20:18 09/15/18 21:00 09/15/18 21:13 Temperature Pulse Rate 73 71 65 Respiratory Rate 20 20 15 Blood Pressure 139/65 Pulse Oximetry 96 93 L 93 L 09/15/18 21:18 09/15/18 22:00 09/15/18 22:18 Temperature Pulse Rate 65 73 82 Respiratory Rate 13 21 39 H Blood Pressure 153/70 H 165/72 H Pulse Oximetry 99 91 L 95 09/15/18 23:00 09/15/18 23:18 09/16/18 00:00 Temperature 98.4 F Pulse Rate 65 65 65 Respiratory Rate 15 16 17 Blood Pressure 145/64 H Pulse Oximetry 98 98 98 09/16/18 00:18 09/16/18 01:00 09/16/18 01:18 Temperature Pulse Rate 64 65 66 Respiratory Rate 18 20 20 Blood Pressure 167/72 H 156/68 H Pulse Oximetry 97 96 98 09/16/18 02:00 09/16/18 02:18 09/16/18 03:00 Temperature Pulse Rate 62 59 L 65 Respiratory Rate 23 20 20 Blood Pressure 144/64 H Pulse Oximetry 99 99 96 09/16/18 03:18 09/16/18 03:31 09/16/18 04:00 Temperature Pulse Rate 68 73 73 Respiratory Rate 20 20 19 Blood Pressure 148/65 H Pulse Oximetry 98 94 L 09/16/18 04:18 09/16/18 05:00 09/16/18 05:18 Temperature 98.1 F Pulse Rate 71 67 66 Respiratory Rate 18 41 H 50 H Blood Pressure 150/65 H 170/76 H Pulse Oximetry 96 97 97 09/16/18 06:00 09/16/18 06:18 09/16/18 07:00 Temperature Pulse Rate 70 72 72 Respiratory Rate 18 17 16 Blood Pressure 134/60 Pulse Oximetry 96 96 96 09/16/18 07:18 09/16/18 08:00 09/16/18 08:18 Temperature 98.4 F Pulse Rate 68 67 64 Respiratory Rate 27 H 22 17 Blood Pressure 128/73 172/77 H Pulse Oximetry 95 94 L 95 09/16/18 08:58 09/16/18 09:00 09/16/18 09:15 Temperature Pulse Rate 73 72 71 Respiratory Rate 35 H 30 H 18 Blood Pressure 174/81 H 167/77 H Pulse Oximetry 95 96 95 09/16/18 10:00 09/16/18 11:00 09/16/18 11:15 Temperature Pulse Rate 71 68 68 Respiratory Rate 26 H 20 26 H Blood Pressure 221/93 H Pulse Oximetry 95 95 96 09/16/18 11:27 09/16/18 11:38 09/16/18 11:51 Temperature Pulse Rate 67 70 74 Respiratory Rate 23 20 30 H Blood Pressure 204/95 H 224/101 H 186/91 H Pulse Oximetry 97 95 96 09/16/18 12:00 09/16/18 12:23 09/16/18 13:00 Temperature 98.4 F Pulse Rate 76 77 85 Respiratory Rate 20 22 23 Blood Pressure 154/70 H Pulse Oximetry 96 96 96 Intake & Output 09/15/18 09/16/18 09/16/18 18:59 06:59 18:59 Intake Total 896 / 896 1000 / 1000 111.2 / 111.2 Output Total 3200 / 3200 1225 / 1225 Balance -2304 / -2304 -225 / -225 111.2 / 111.2 Weight 89.8 kg Intake: IV 896 / 896 1000 / 1000 111.2 / 111.2 Precedex Inj 1,000 MCG In NS 146 / 146 Inj 240 ML @ 0.2 MCG/KG/HR 4.77 mls/hr IV.CONT TITRATE PRN Rx# :[id number] NS Inj 1,000 ML @ 70 mls/hr IV. 750 / 750 600 / 600 CONT .[id number] [facility] Rx#: [id number]-12 Inj 10 ML Thiamine Inj 400 / 400 111.2 / 111.2 100 MG Folvite Inj 1 MG In NS Inj 500 ML @ 125 mls/hr IV.SIG Q24H [place] Rx#:[id number] Output: Urine 600 / 600 Urine Amount (Catheter) 2600 / 2600 1225 / 1225 Coude 2600 / 2600 1225 / 1225 Other: Date of Last Bowel Movement 09/15/18 09/15/18 # Incontinent Bowel Movements 2 - Routine Neurological Exam alert, speech normal , normal comprehension CN intact MOTOR 5/5 BUE and BLE - Urinary Catheter Management Coude Cath placed during this visit: yes, but has since been removed by the nurse Reason for continuing: Decision to DC catheter Insertion date: 09/15/18 Insertion time: 08:35 Removal date: 09/16/18 Removal time: 11:17 Objective Radiology Results: mri brain normal CT brain 24 hr post tpa normal echo--normal Laboratory Results - last 24 hr 09/15/18 09/15/18 09/16/18 12:24 17:14 00:36 POC Glucose 138 H 181 H Hemoglobin A1c 7.0 H 09/16/18 09/16/18 05:52 12:05 POC Glucose 188 H 193 H Hemoglobin A1c Review/Management - Review/Management Plan: cva, resolved after iv TPA. neurologically back to his normal. start asa 325 mg daily. Ok from neurology standpoint to dc when ok with medicine service and follow up with his physician in [place]. Recommend consideration of process development chemist radiation monitor as outpatient to r/o intermittent afib.
[2018-09-16 16:12] LABS: Hematocrit 34.3 % (39.0-51.0); Hemoglobin 11.9 gm/dL (13.0-17.0); Mean Corpuscular HGB Conc 34.8 % (32.0-36.0); Mean Corpuscular Volume 94.9 fL (80.0-100.0); Mean Platelet Volume 7.1 fL (7.0-11.0); Platelet Count 211 th/mm3 (150-450); Red Blood Count 3.62 mil/mm3 (4.50-5.90); White Blood Count 8.3 th/mm3 (4.0-11.0)
[2018-09-16 16:26] LABS: Anti-Nuclear Antibody Screen Neg (Neg)
[2018-09-16 16:27] LABS: Calcium 8.3 mg/dL (8.5-10.1); Carbon Dioxide 26.9 meq/L (21.0-32.0); Potassium 3.9 meq/L (3.5-5.1)
[2018-09-16 20:31] VITALS: TEMP 98.9
[2018-09-17] MEDS: Multivitamin Inj 10 ML, Thiamine Inj 100 MG, Folic Acid Inj 1 MG in Sodium Chlor 0.9% I... IV.SIG SCH (03:43)
[2018-09-17] MEDS: Morphine Sulfate Inj 2 MG/ML Vial IV.PUSH PRN (04:10)
[2018-09-17] MEDS: Chlorhexidine Gluconate 2% 1 Pack (2 Cloths) TOPICAL SCH (04:57)
[2018-09-17] MEDS: Insulin NovoLOG Aspart Correctional Sugar Inj SQ SCH (05:59)
[2018-09-17] MEDS: Sod Chloride 0.9% Inj 1,000 ML IV.CONT SCH (06:16)
[2018-09-17 06:25] VITALS: BP 158/74; RESP 15
--- NOTE | 2018-09-17 08:37 | P.DS ---
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:: Sanjeev Merrill Reason for Consultation: Brain Attack Spoke with:: [facility] ED verified dr laquita cali Date Notified:: 09/14/18 Time Notified:: 21:24 Ordering Provider: JOHAN 09/14/18 21:12 Consult to Neurology Routine Consulting Provider: Sudheer Chew Reason for Consultation: Ischemic Stroke Notified:: Service Spoke with:: annie Date Notified:: 09/14/18 Time Notified:: 21:25 Ordering Provider: NATALYA Consult to Rehab Medicine Routine Consulting Provider: Toya Valentino Reason for Consultation: Stroke patient, assist with Rehab recommendations Notified:: Service Spoke with:: annie Date Notified:: 09/14/18 Time Notified:: 21:40 Ordering Provider: NATALYA 09/15/18 12:15 Consult to Hospitalist Routine Consulting Provider: Ian Wylie Reason for Consultation: Assume care in am 09/15/18 Spoke with:: carolann Date Notified:: 09/15/18 Time Notified:: 12:20 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 Date of admission 09/14/2018. Past medical history includes essential hypertension hyperlipidemia and medicine dependent diabetes mellitus. Patient presented to [facility] with a chief complaint of altered mental status.including expressive aphasia and was described as left-sided weakness.. Per documentation by physician Dr. Murray. On initial examination, the patient has right upper and right lower extremity weakness, with inability to hold his right upper and lower extremities against gravity. He has normal strength in his left upper and left lower extremity. There is no facial asymmetry. Stroke alert was initiated in the field and continued at the [facility] ED. Patient was taken to CT scan which was negative. CT angiogram of the brain and neck revealed no acute intracranial findings. NIH score was 10 for aphasia, not following commands and left upper and lower motor weakness. Dr. Merrill to evaluate the patient. Patient did receive metoclopramide and ondansetron and promethazine for nausea which is persistent. Decision was made to start alteplase was given 8.6 mg IV x1 followed by 77.4 mg. Patient was hypertensive and started on nicardipine drip to keep systolic blood pressure less than 180. ED physician at [facility] discussed with patient's and patient's daughter -in-law via telephone who is a critical care nurse in [place] and made her aware of the clinical situation. MRI of the brain has been ordered but patient is currently too combative to perform the present time. Patient did receive 1 mg of lorazepam and attempt to calm the patient which was not successful DS: Diagnosis Discharge Diagnosis (1) Essential hypertension: Status: Chronic (2) Hyperlipidemia: Status: Chronic (3) Diabetes mellitus: Status: Chronic (4) Leukocytosis: Status: Acute (5) Normocytic anemia: Status: Acute (6) Elevated TSH: Status: Acute (7) Acute ischemic stroke: Status: Acute DS: Summary Patient is a pleasant 78 year old male with history of labile HTN was noted to have right upper and lower extremity weakness and inability to lift his extremities significantly against gravity. Patient was admitted to hospital with the following treatments and services were provided in his care. Patient was initially evaluated by intensive care unit and transferred to the surgical ICU for closer monitoring. Consultation was appreciated by neurology. Stroke alert had been initiated when patient originally presented with first CT brain unremarkable. Patient had CTA of the head and neck which was also unremarkable. Patient was evaluated and met criteria for TPA and received therapy with improvement in neurological function. Patient was stable after that.. Evaluation also performed by physical therapy with recommendations during hospitalization for outpatient physical therapy. Patient was initiated on aspirin 325 mg daily. Patient received EEG which showed no seizure activity. Patient was evaluated by speech therapy and noted to have mild to moderate speech/cognitive deficits with recommendation to receive skilled speech therapy once discharged. Patient clinically improved while hospitalized with increased dose of ramipril to 5 mg daily. Patient cleared from neurology for discharge with close outpatient follow-up and recommendation that upon following up with primary medical doctor in [place] patient should be referred for cardiology evaluation for consideration of loop recorder to identify possible underlying abnormal rhythm such as atrial fibrillation. Patient also recommended to undergo outpatient speech therapy, outpatient physical therapy. Plan of care discussed with patient at the bedside and he will be discharged with plan to follow-up back in [place]. Instructed patient that a long drive back to [place] that every 2-3 hours he should get out and walk. Patient verbalized understanding of plan Time Spent with Patient Total time spent providing and/or coordinating discharge services: > 30 minutes Patient is a pleasant 78 year old male with history of labile HTN was noted to have right upper and lower extremity weakness and inability to lift his extremities significantly against gravity. Patient was admitted to hospital with the following treatments and services were provided in his care. Patient was initially evaluated by intensive care unit and transferred to the surgical ICU for closer monitoring. Consultation was appreciated by neurology. Stroke alert had been initiated when patient originally presented with first CT brain unremarkable. Patient had CTA of the head and neck which was also unremarkable. Patient was evaluated and met criteria for TPA and received therapy with improvement in neurological function. Patient was stable after that.. Evaluation also performed by physical therapy with recommendations during hospitalization for outpatient physical therapy. Patient was initiated on aspirin 325 mg daily. Patient received EEG which showed no seizure activity. Patient was evaluated by speech therapy and noted to have mild to moderate speech/cognitive deficits with recommendation to receive skilled speech therapy once discharged. Patient clinically improved while hospitalized with increased dose of ramipril to 5 mg daily. Patient cleared from neurology for discharge with close outpatient follow-up and recommendation that upon following up with primary medical doctor in [place] patient should be referred for cardiology evaluation for consideration of loop recorder to identify possible underlying abnormal rhythm such as atrial fibrillation. Patient also recommended to undergo outpatient speech therapy, outpatient physical therapy. Plan of care discussed with patient at the bedside and he will be discharged with plan to follow-up back in [place]. Instructed patient that a long drive back to [place] that every 2-3 hours he should get out and walk. Patient verbalized understanding of plan Quality: Stroke Last date observed well: 09/14/18 Last time observed well: :19 Exam Narrative Exam Narrative: neuro: power 5/5 throughout upper and lower extremity no facial droop no slurred speech PERRLA EOMI sensation UE/LE bilaterally intact. Results Labs on day of discharge: Labs from last 24 hours 09/17/18 09/16/18 09/16/18 05:51 23:06 17:50 WBC RBC Hgb Hct MCV MCH MCHC RDW Plt Count MPV Sodium Potassium Chloride Carbon Dioxide Anion Gap BUN Creatinine Estimated GFR POC Glucose 186 H 162 H 250 H Random Glucose Calcium GANESH Screen 09/16/18 09/16/18 09/16/18 15:31 15:31 12:05 WBC 8.3 RBC 3.62 L Hgb 11.9 L Hct 34.3 L MCV 94.9 MCH 33.0 MCHC 34.8 RDW 14.0 Plt Count 211 MPV 7.1 Sodium 141 Potassium 3.9 Chloride 108 H D Carbon Dioxide 26.9 Anion Gap 6 BUN 13 Creatinine 1.15 Estimated GFR 62 L POC Glucose 193 H Random Glucose 222 H Calcium 8.3 L GANESH Screen 09/14/18 20:45 WBC RBC Hgb Hct MCV MCH MCHC RDW Plt Count MPV Sodium Potassium Chloride Carbon Dioxide Anion Gap BUN Creatinine Estimated GFR POC Glucose Random Glucose Calcium GANESH Screen Neg Impressions ITS Impressions Head CTA 09/14/18 19:27 CONCLUSION: 1. Negative CTA Head. Report was called by Dr. Enriquez to Dr. Merrill at 8:42 PM on September 14 2018. Neck CTA 09/14/18 19:27 CONCLUSION: 1. Moderate plaque at the carotid bifurcations. No hemodynamically significant stenosis. Report was called by Dr. Enriquez to Dr. Merrill at 8:[address] 09/15/18 20:00 CONCLUSION: No acute abnormality is seen. No hemorrhage is seen. . . Head MRI 09/15/18 20:31 CONCLUSION: 1. No acute intracranial abnormality. 2. Atrophy and mild, chronic white matter changes. Discharge Plan Discharge Disposition Patient Disposition: 01 Discharge Home Discharge Condition Condition: Stable Discharge Order Discharge Orders: Discharge Order (Routine); Ordered 09/17/18 Ordered By: Ian Wylie Discharge Details Anticipated Discharge Date: 09/17/18 Discharge Comment: DO NOT discharge patient until I evaluate this morning. will let you know final decision. thanks! Physicians Team Primary Care Provider: Primary Care Mohinii,Salma Attending Provider: Ian Wylie Other Providers: Sanjeev Merrill ; Sudheer Chew ; Toya Valentino Rxs /Orders / Referrals /Forms Prescriptions: New ramipril 5 mg Capsule 5 mg PO DAILY 30 Days Qty: 30 RF: 0 aspirin 325 mg Tablet 325 mg PO DAILY 30 Days Qty: 30 RF: 0 Continue metformin 500 mg tablet 500 mg PO DAILY RF: 0 atorvastatin 40 mg tablet 40 mg PO DAILY RF: 0 ezetimibe 10 mg tablet 10 mg PO DAILY RF: 0 Discontinued ramipril 2.5 mg tablet 2.5 mg PO DAILY RF: 0 Referrals: Primary Care Physici,No [Primary Care Provider] - See Instructions (Upon discharge patient should follow up PMD in [place] and PMD may elect to refer to filter changer for loop recorder to evaluate for possible atrial fibrillation intermittently continue ASA 325mg qD increase ramipril to 5mg daily ) Discharge Instructions Patient Printed Instructions: Transient Ischemic Attack (GEN) Additional Instructions: Upon discharge patient should follow up PMD in [place] and PMD may elect to refer to filter changer for loop recorder to evaluate for possible atrial fibrillation intermittently continue ASA 325mg qD increase ramipril to 5mg daily Status ED Status: Left Department
[2018-09-17] MEDS: Ramipril 5 MG Capsule PO SCH (09:30)
[2018-09-17] MEDS: Aspirin 325 MG Tablet PO SCH (09:30)
[2018-09-17] MEDS: Senna/Docusate Sodium 8.6/50 MG Tablet PO SCH (09:31)
[2018-09-17 15:03] VITALS: PULSE 69; O2SAT 96
--- NOTE | 2018-09-17 16:23 | HM ---
Date Performed: 09/15/2018 Time Performed: 22:37:00 HOOKUP DATE: 09/15/18 10:37:00 PM Tue ANALYSIS START TIME: 09/15/2018 10:42:00 PM ANALYSIS END TIME: 09/16/2018 9:34:00 PM PATIENT AGE: 78 PATIENT HEIGHT PATIENT WEIGHT DRUG LIST PATIENT DIAGNOSIS: stroke alert TEST NARRATIVE: The patient's average heart rate was 71 BPM. Heart rates greater than 120 B PM were noted < 1% of the time. No episodes of bradycardia were noted. No pauses exceeding 2.0 s econds were noted. 932 ventricular ectopics, which represented 1% of the total beat count, were n oted. The highest ventricular ectopic frequency occurred from 12:00 PM to 01:00 PM Wed. During this time 107 VE(s) occurred. Ventricular ectopics were observed as 836 isolated beat(s) and as 48 coupl et(s). No runs were noted. Some of the ventricular beats occurred in bigeminal cycles. 1211 sup raventricular ectopics, which represented 1% of the total beat count, were noted. The highest suprav entricular ectopic frequency occurred from 04:00 AM to 05:00 AM Wed. During this time 200 SVE(s) occ urred. No episodes of ST depression (defined as -1.0 mm or more) were noted in channel 1. No epi sodes of ST depression (defined as -1.0 mm or more) were noted in channel 2. No episodes of ST depre ssion (defined as -1.0 mm or more) were noted in channel 3. TEST INTERPRETATION: No Atrioal Fibrillation Essentially normal holter Signed by : Marivel Pina
== END 2018-09-17 11:15 | disposition home or self-care (01) | DRG 62 ==
LOC: PHED 19:23 → PHEDA 21:07 → N03 22:16
PROVIDERS: ADMIT Internal Medicine; ATTEND Internal Medicine
DX: E11.9 Type 2 diabetes mellitus without complications; I63.9 Cerebral infarction, unspecified; D64.9 Anemia, unspecified; E87.1 Hypo-osmolality and hyponatremia; Z79.4 Long term (current) use of insulin; Z87.891 Personal history of nicotine dependence; I48.91 Unspecified atrial fibrillation; R33.9 Retention of urine, unspecified; R47.01 Aphasia; Z79.899 Other long term (current) drug therapy; I45.2 Bifascicular block; D72.829 Elevated white blood cell count, unspecified; R94.6 Abnormal results of thyroid function studies; E78.5 Hyperlipidemia, unspecified; G81.91 Hemiplegia, unspecified affecting right dominant side; R00.1 Bradycardia, unspecified; R29.710 NIHSS score 10; I10 Essential (primary) hypertension; E78.00 Pure hypercholesterolemia, unspecified
CPT/HCPCS: 70450; 70496; 70498; 70553; 80048; 80053; 80061; 80307; 81001; 82550; 82607; 82948; 82962; 83036; 83735; 84100; 84439; 84443; 84484; 85025; 85027; 85384; 85610; 85651; 85652; 85730; 86038; 86592; 86850; 86900; 86901; 87641; 90765; 90772; 90775; 93005; 93225; 93306; 94640; 94664; 94665; 95819; 96125; 96365; 96372; 96375; 97110; 97163; 97167; 97530; 99291; A9585; C9113; J0360; J1815; J2060; J2270; J2405; J2550; J2765; J2997; J3411; J7030; J7040; J7050; Q9967